=== PATIENT | male | born 1950 | race Caucasian/White ===

== ENCOUNTER → 2017-10-19 09:53 | Outpatient (CLI) | payer MEDICARE, BC, SELFPAY ==
[2017-10-19 10:04] LABS: Lyme Ab Screen Interpretation REF LAB
[2017-10-19 12:18] LABS: Absolute Lymphocyte Count 1.62 X10^3/ul (0.83-4.51); Absolute Neutrophil Count 1.8 X10^3/uL (2.0-7.7); Basophil# 0.01 X10^3/uL; Basophil% 0.3 % (0-1); Eosinophil# 0.03 X10^3/uL; Eosinophils% 0.8 % (0-5); Hematocrit 43.9 % (40-54); Hemoglobin 14.2 g/dl (13.0-16.5); Lymphocyte # 1.62 X10^3/ul (4.0); Lymphocyte % 42.5 % (19-41); Mean Corp Hgb Conc 32.3 g/gl (32-36); Mean Corpuscular Volume 89.6 fL (80-94); Mean Platelet Vol. 10.4 fl (6.2-12.0); Monocyte# 0.33 X10^3/uL; Monocyte% 8.7 % (0-10); Neutrophil # 1.82 X10^3/uL (2.7-7.7); Neutrophil % 47.7 % (47-70); Platelet Count 172 K/mm3 (150-450); RBC Distribution Width CV 13.7 % (11.6-14.6); RBC Distribution Width SD 45.1 fl (35.1-43.9); White Blood Count 3.8 K/mm3 (4.4-11.0)
[2017-10-19 12:19] LABS: POSITIVE COUNT NO; POSITIVE DIFFERENTIAL NO; POSITIVE MORPHOLOGY NO
[2017-10-19 12:30] LABS: AST(SGOT) 31 U/L (15-37); Alanine Aminotransfer ALT/SGPT 58 U/L (16-61); Albumin, Serum 3.9 g/dL (3.2-5.0); Alkaline Phosphatase 81 U/L (45-117); Anion Gap 10 (5-15); BUN 16 mg/dL (7-18); BUN/Creat Ratio 15.8 RATIO (10-20); Bilirubin, Direct 0.12 mg/dL (0.00-0.30); Chloride 110 mmol/L (98-107); Cholesterol 116 mg/dL (200); Creatinine, Serum 1.01 mg/dL (0.70-1.30); EST Glomerular Filtration Rate 78 mL/min (>60); Est Glom Filt Rate - Afr Amer 94 mL/min (>60); Globulin 3.8 g/dL (2.2-4.2); Glucose 97 mg/dL (74-106); High Density Lipoprotein 37 mg/dL; Potassium 4.2 mmol/L (3.5-5.1); Protein, Total 7.7 g/dL (6.4-8.2); Rheumatoid Factor < 10.0 IU/mL (<15); Sodium Level 141 mmol/L (136-145); Thyroid Stim Hormone (TSH) 1.12 uIU/mL (0.358-3.74); Triglycerides 76 mg/dL; Very Low Density Lipoprotein 15 mg/dL (5-40)
[2017-10-19 13:43] LABS: Erythrocyte Sedimentation Rate 11 mm/hr (0-20)
[2017-10-20 14:59] LABS: ANTINUCLEAR ANTIBODIES DIRECT Negative (Negative)
[2017-10-22 09:44] LABS: CCP IgG Antibodies 9 units (0-19); Lyme Scn Total Ab w/Rflx <0.91 ISR (0.00-0.90)
== END ==
PROVIDERS: Family Provider Nurse Practitioner; PCP Nurse Practitioner; Visit Provider Nurse Practitioner
DX: E78.5 Hyperlipidemia, unspecified (principal); I25.10 Atherosclerotic heart disease of native coronary artery without angina pectoris; M25.50 Pain in unspecified joint
CPT/HCPCS: 36415; 80053; 80061; 82248; 84443; 85025; 85652; 86038; 86200; 86431; 86618

== ENCOUNTER → 2018-03-01 08:47 | Outpatient (CLI) | payer MEDICARE, BC, SELFPAY ==
[2017-02-24 13:41] VITALS: BMI 30.1
[2018-03-01 10:42] LABS: AST(SGOT) 21 U/L (15-37); Alanine Aminotransfer ALT/SGPT 52 U/L (16-61); Albumin, Serum 3.9 g/dL (3.2-5.0); Alkaline Phosphatase 88 U/L (45-117); Bilirubin, Direct 0.13 mg/dL (0.00-0.30); Cholesterol 151 mg/dL (200); Globulin 3.3 g/dL (2.2-4.2); High Density Lipoprotein 34 mg/dL; Protein, Total 7.2 g/dL (6.4-8.2); Triglycerides 96 mg/dL; Very Low Density Lipoprotein 19 mg/dL (5-40)
== END ==
PROVIDERS: Family Provider Nurse Practitioner; PCP Nurse Practitioner; Referring Provider Internal Medicine Cardiovascular Disease; Visit Provider Internal Medicine Cardiovascular Disease
DX: E78.5 Hyperlipidemia, unspecified (principal); I25.10 Atherosclerotic heart disease of native coronary artery without angina pectoris
CPT/HCPCS: 36415; 80061; 80076

== ENCOUNTER → 2018-03-22 14:40 | Outpatient (CLI) | payer SELFPAY ==
[2018-03-04 15:44] VITALS: BMI 29.5
--- NOTE | 2018-03-22 14:44 | CT_ITS ---
STUDY: CT CHEST WITHOUT CONTRAST REASON FOR EXAM: Male, 68 years old. Calcium scoring examination. Hyperlipidemia. Radiological over read examination. RADIATION DOSAGE (If Supplied By Facility): CTDIvol = ( 12.19 ) mGy, DLP = ( 390.07 ) mGycm TECHNIQUE: Transaxial imaging was performed without the administration of intravenous contrast material. Individualized dose optimization techniques were used for this CT. COMPARISON: None. FINDINGS: Calcified granuloma in the posterior medial segment of the right lower lobe. There is no demonstrated pleural abnormality. There are calcifications of the coronary arteries. There are multiple small lymph nodes within the mediastinum, which are normal in size and morphology most compatible with reactive lymph hyperplasia. Calcified right hilar lymph nodes. Normal unenhanced pulmonary arteries. Normal aorta arch and descending thoracic aorta. There are multi-level degenerative changes of the thoracic spine. There is no demonstrated abnormality of the visualized upper abdomen. CT/Limited Chest CT w/CCTA IMPRESSION: No acute abnormality is seen. Electronically Signed: Arian Lennon MD at 13:53 EST , Service support ,
[2018-03-22 14:50] VITALS: BP 141/81; PULSE 62; RESP 16; O2SAT 98; BMI 29.1
--- NOTE | 2018-03-22 16:38 | CA.SCORE ---
Calcium Scoring Date of Study:: 03/22/18 Coronary Calcium Scoring: Coronary calcium score. High-resolution computed tomographic imaging of the chest was performed on 03/22/2018 with particular attention paid to the coronary arteries. Images from the examination were analyzed for the presence and extent of coronary artery calcification using the coronary calcification quantification software. The patient tolerated the procedure well and there were no complications. The results of the coronary calcification analysis are provided below. Coronary artery score Left main coronary artery score 657 Left anterior descending artery score 0 Left circumflex artery score 0 Right coronary artery score 22 Total Agagston score 6[address] the patient between the 75th and 90th percentile ranking for age-matched controls. It is suggestive of extensive plaque burden.
== END ==
PROVIDERS: Family Provider Nurse Practitioner; PCP Nurse Practitioner; Referring Provider Internal Medicine Cardiovascular Disease; Visit Provider Internal Medicine Cardiovascular Disease
DX: E78.5 Hyperlipidemia, unspecified (principal); I25.10 Atherosclerotic heart disease of native coronary artery without angina pectoris; R94.31 Abnormal electrocardiogram [ECG] [EKG]; I51.7 Cardiomegaly; R79.82 Elevated C-reactive protein (CRP)
CPT/HCPCS: 75571; 76380

== ENCOUNTER → 2018-03-29 07:06 | Outpatient (CLI) | payer MEDICARE, BC, SELFPAY ==
[2018-03-22 14:50] VITALS: BMI 29.1
--- NOTE | 2018-03-29 14:16 | STRESSREP_ITS ---
Stress Test Report Exercise myocardial perfusion stress test. 68-year-old man with a history of coronary artery disease. Stress protocol: Resting EKG demonstrates normal sinus rhythm with 67 bpm normal intervals are noted resting blood pressure 142/80 mmHg. The patient exercised according to regular Adrián protocol for total duration of 6 minutes the maximum heart rate attained was 148 bpm which was 98% of maximum predicted heart rate the maximum workload was 7 metabolic equivalents. At rest there were no ST or T wave changes noted suggest ischemia at peak exercise nonspecific ST-T wave changes were noted with normally the criteria for ischemia. No clinical angina was noted. Resting blood pressure 142/80 mmHg with a peak blood pressure 180/86 m mHg. Myocardial perfusion protocol. 11.6 mCi of technetium 99m sestamibi was injected at rest. The patient exercised according to regular Darián protocol for total duration of 6 minutes. The maximum heart rate attained was 148 bpm. At peak exercise 33.5 mCi of technetium 99m sestamibi was injected at rest. Stress and rest images were reconstructed and compared in the short axis vertical and horizontal long axis. Gated images were also obtained Perfusion SPECT analysis: Review of the stress images demonstrate normal uptake of tracer noted in all areas of the myocardium. The resting images similarly demonstrate normal uptake of tracer noted in all areas of the myocardium. No areas of reversibility are noted suggest ischemia. Gated SPECT analysis: The gated ejection fraction is noted to be 60%. Conclusion: Normal exercise myocardial perfusion stress test. Good functional capacity. Preserved ejection fraction.
== END ==
PROVIDERS: Family Provider Nurse Practitioner; PCP Nurse Practitioner; Referring Provider Internal Medicine Cardiovascular Disease; Visit Provider Internal Medicine Cardiovascular Disease
DX: R94.31 Abnormal electrocardiogram [ECG] [EKG] (principal); E78.5 Hyperlipidemia, unspecified; I25.10 Atherosclerotic heart disease of native coronary artery without angina pectoris; I34.0 Nonrheumatic mitral (valve) insufficiency; R79.82 Elevated C-reactive protein (CRP); R93.1 Abnormal findings on diagnostic imaging of heart and coronary circulation
CPT/HCPCS: 78452; 93017; A9500; A4216

== ENCOUNTER → 2018-08-02 | Outpatient (CLI) | payer MEDICARE, BC, SELFPAY ==
[2018-03-22 14:50] VITALS: BMI 29.1
[2018-08-02 15:27] LABS: Absolute Lymphocyte Count 1.47 X10^3/ul (0.83-4.51); Absolute Neutrophil Count 2.9 X10^3/uL (2.0-7.7); Basophil# 0.03 X10^3/uL; Basophil% 0.6 % (0-1); Eosinophil# 0.06 X10^3/uL; Eosinophils% 1.2 % (0-5); Hematocrit 42.6 % (40-54); Hemoglobin 14.2 g/dl (13.0-16.5); Lymphocyte # 1.47 X10^3/ul (4.0); Lymphocyte % 29.8 % (19-41); Mean Corp Hgb Conc 33.3 g/gl (32-36); Mean Corpuscular Volume 86.9 fL (80-94); Mean Platelet Vol. 10.6 fl (6.2-12.0); Monocyte# 0.48 X10^3/uL; Monocyte% 9.7 % (0-10); Neutrophil % 58.7 % (47-70); Platelet Count 174 K/mm3 (150-450); RBC Distribution Width CV 13.5 % (11.6-14.6); RBC Distribution Width SD 42.4 fl (35.1-43.9); White Blood Count 4.9 K/mm3 (4.4-11.0)
[2018-08-02 15:34] LABS: POSITIVE COUNT NO; POSITIVE DIFFERENTIAL NO; POSITIVE MORPHOLOGY NO
[2018-08-02 16:18] LABS: ALB/GLOB Ratio 1.1 RATIO (0.9-2.4); AST(SGOT) 29 U/L (15-37); Alanine Aminotransfer ALT/SGPT 44 U/L (16-61); Albumin, Serum 3.7 g/dL (3.2-5.0); Alkaline Phosphatase 81 U/L (45-117); Anion Gap 7 (5-15); BUN 17 mg/dL (7-18); BUN/Creat Ratio 13.2 RATIO (10-20); Calcium,Total 8.7 mg/dL (8.5-10.1); Chloride 111 mmol/L (98-107); Creatinine, Serum 1.29 mg/dL (0.70-1.30); EST Glomerular Filtration Rate 59 mL/min (>60); Est Glom Filt Rate - Afr Amer 71 mL/min (>60); Globulin 3.4 g/dL (2.2-4.2); Glucose 82 mg/dL (74-106); Protein, Total 7.1 g/dL (6.4-8.2); Sodium Level 145 mmol/L (136-145); Thyroid Stim Hormone (TSH) 1.02 uIU/mL (0.358-3.74)
== END | disposition home or self-care (01) ==
LOC: MTLAB 14:30
PROVIDERS: Family Provider Nurse Practitioner; PCP Nurse Practitioner; Referring Provider Nurse Practitioner; Visit Provider Nurse Practitioner
DX: E78.00 Pure hypercholesterolemia, unspecified (principal)
CPT/HCPCS: 36415; 80053; 84443; 85025

== ENCOUNTER → 2018-09-22 | Outpatient (CLI) | payer MEDICARE, BC, SELFPAY ==
[2018-03-22 14:50] VITALS: BMI 29.1
[2018-09-22 10:39] LABS: AST(SGOT) 25 U/L (15-37); Alanine Aminotransfer ALT/SGPT 59 U/L (16-61); Albumin, Serum 3.8 g/dL (3.2-5.0); Alkaline Phosphatase 85 U/L (45-117); Bilirubin, Direct 0.23 mg/dL (0.00-0.30); Cholesterol 109 mg/dL (200); Globulin 3.1 g/dL (2.2-4.2); High Density Lipoprotein 35 mg/dL; Protein, Total 6.9 g/dL (6.4-8.2); Triglycerides 73 mg/dL; Very Low Density Lipoprotein 15 mg/dL (5-40)
== END | disposition home or self-care (01) ==
LOC: MTLAB 07:17
PROVIDERS: Family Provider Nurse Practitioner; PCP Nurse Practitioner; Referring Provider Internal Medicine Cardiovascular Disease; Visit Provider Internal Medicine Cardiovascular Disease
DX: E78.5 Hyperlipidemia, unspecified (principal)
CPT/HCPCS: 36415; 80061; 80076

== ENCOUNTER → 2019-01-25 13:06 | Outpatient (CLI) | payer MEDICARE, BC, SELFPAY ==
[2018-03-22 14:50] VITALS: BMI 29.1
--- NOTE | 2019-01-25 13:09 | RAD_ITS ---
STUDY: X-RAY - PELVIS AND BILATERAL HIPS REASON FOR EXAM: Male, 68 years old. Chronic pain TECHNIQUE: AP view of the pelvis.? 2 views of the right hip, and 2 views of the left hip were obtained. COMPARISON: None. FINDINGS: The sacroiliac and hip joints are normal with no acute fractures or dislocations. The visualized soft tissues are within normal limits. Electronically Signed: Ernst Hinojosa MD at 7:38 EST Tel , Service support , RAD/Hips B/L min 2 views w/ Pelvis
--- NOTE | 2019-01-25 13:10 | RAD_ITS ---
STUDY: X-RAY - LUMBAR SPINE REASON FOR EXAM: Male, 68 years old. Chronic low back pain and bilateral hip pain. TECHNIQUE: 5 view(s) of the lumbar spine were obtained. COMPARISON: 01/28/2016. FINDINGS: Normal lumbar lordosis. There is no substantial scoliosis. Minimal degenerative anterolisthesis of L4 on L5 without significant changes. Normal vertebral bodies and endplates. Moderate T12-L1 disc space height narrowing with endplate sclerosis. Moderate L5-S1 disc space height narrowing with endplate sclerosis and degenerative vacuum phenomenon. Mild L3-L4 disc space height narrowing. The soft tissue structures are unremarkable. RAD/L/S Spine Min 4 Views IMPRESSION: 1. No acute fracture or acute osseous abnormality of the lumbar spine. 2. Minimal degenerative anterolisthesis of L4 on L5 without significant change since 01/28/2016. 3. Moderate L5-S1 disc space height narrowing with endplate sclerosis but unchanged. 4. Moderate T12-L1 disc space narrowing with endplate sclerosis but unchanged. 5. Mild L3-L4 disc space height narrowing is unchanged. Electronically Signed: Keenan Maxwell MD at 12:41 EST , Service support ,
== END ==
PROVIDERS: Family Provider Nurse Practitioner; PCP Nurse Practitioner; Referring Provider Nurse Practitioner; Visit Provider Nurse Practitioner
DX: M54.30 Sciatica, unspecified side (principal); M25.551 Pain in right hip; M25.552 Pain in left hip
CPT/HCPCS: 72110; 73521; 97110; 97162

== ENCOUNTER 2019-02-17 10:00 | Outpatient (RCR) | payer MEDICARE, BC, SELFPAY ==
[2018-03-22 14:50] VITALS: BMI 29.1
--- NOTE | 2019-01-25 16:59 | HP.PTEVAL_ITS ---
Patient's Visit Information SHANTHI GOMEZ is a 68 year old M referred to Physical Therapy by Ericka Silver NP-C with a diagnosis of SCIATICA. Date of Evaluation: 01/25/19 Physical Therapist: Douglas Fall, PT, Cert MDT, OCS - Visit Plan Frequency: 2x /Week Duration: 4 Weeks Plan: PT INTERVENTIONS MODALTIES FOR PAIN RELIEVE ,DLS ABD/BACK (NEUTRAL) ,LE FLEXABLITY, - Subjective Findings: This 68 y/o male presents to physical therapy with sciatica pain.Patient has had lumbar pain many years then noticed more L-S spine occassional thigh. Patient seen Ericka Ambrosio ,recommended PT and had x-rays today,recommended Patient location of symptoms L-S region ocasional anterior thighs. Aggravating factors sitting,walking extended distances ,standing > 30 mins. Alleviating factors aleve rest. Denies parathesia/tingling,occassionally. Patient pain affects sleeping. Bowel/bladder -.Coughing/sneezing-. Patient pain affects ADLS' ,housework task. Patient symptoms affects QOL. SOCIAL: . VOCATION: own business window/door - Pain Bilateral Back Pain Intensity (Out of 10): 8 Pain Intensity Range: 10 - Objective POSTURE: mild foward posture. GAIT: reciprocal pattern. PALAPTION: tender L-S. NEURO: denies parathesia/tingling,reflexes L3-4,L4-5,L5-S1 1/3. FLEXABILITY: hams mod tight. HIP ROM: IR 50 degrees. LUMBAR ROM: flexion min loss ,extension mod loss pain,side glides min/mod loss pain. SYMMTRIES: align. MMT: quads/hams 4/5 ,hip flexion 4/5 ankle 4/5 - Special Tests L/S Slump test left side: Positive L/S Slump test right side: Positive L/S Left Straight Leg Raise: Negative L/S Right Straight Leg Raise: Negative Lumbar Standing: Flexion - Mechanical Response: No effect Lumbar Standing: Flexion - Symptoms During Testing: No effect Lumbar Standing: Extension - Mechanical Response: No effect Lumbar Standing: Extension - Symptoms During Testing: Increases Lumbar Standing: Extension - Symptoms After Testing: No worse Lumbar Standing: Right Side [place] - Symptoms During Testing: Increases Lumbar Standing: Right Side [place] - Symptoms After Testing: No worse Lumbar Standing: Left Side [place] - Mechanical Response: No effect Lumbar Standing: Left Side [place] - Symptoms During Testing: Increases Lumbar Standing: Left Side [place] - Symptoms After Testing: No worse - Goals Goal 1:: Independant with HEP Goal Time Frame: 4-6 Weeks Goal 2:: Patient to be Independant with posture for ADL'S Goal Time Frame: 4-6 Weeks Goal 3:: Pateint decrease lumbar symptoms by 50% or > to improve function. Goal Time Frame: 4-6 Weeks Goal 4:: Patient improve lumbar ROM for function of recovery. Goal Time Frame: 4-6 Weeks Goal 5:: Patient to inmprove back owestry score by 5 points or> to improve QOL. Goal Time Frame: 4-6 Weeks - Rehabilitation Potential Physical Therapy Diagnosis: This patient has L-S with radiating stmptoms to buttucks and occassional anterior thighs worse with sitting,sleeping,walking ,decrease lumbar ROM impairs function thus benifit from skilled PT Rehabilitation Potential: Good - Anticipated Interventions Patient/Client Instruction: Educate patient on: Condition, Plan of Care For the Purpose of:: To decrease pain, To increase ROM, To improve muscle performance and motor function, To improve ability to perform ADL's, To increase tolerance to activity/condition/position, To improve ability of physical actions for home/community/work/leisure, To improve health of tissue, To decrease soft tissue restriction, To increase flexibility/ROM, To prevent re-injury Therapeutic Exercise to Include: Strength training, Body mechanics, Postural training, Flexibilty training, Dynamic Lumbar Stabilization For the Purpose of:: To decrease pain, To improve nutrient delivery to tissue, To improve ability to perform ADL's, To increase tolerance to activity/condition/position, To improve ability of physical actions for home/community/work/leisure, To improve health of tissue, To decrease soft tissue restriction, To increase flexibility/ROM, To improve ability to perform tasks related to life management TENS: Yes IF ES: Yes Cryotherapy (ice pack, ice massage): Yes Thermo therapy (hot pack): Yes Ultrasound (thermal/non thermal): Yes For the Purpose of:: To decrease pain, To increase ROM, To improve nutrient delivery to tissue, To increase oxygenation perfusion, To improve health of tissue, To decrease soft tissue restriction Thank you for the opportunity to evaluate your patient. For Medicare and Medicare HMO plans, please review the plan of care and approve it. It will need to be FAXED BACK to us at [phone] for Medicare purposes. For Medicare only, by signing this I certify the plan of care. Please let me know if there are questions or concerns regarding this plan of care. Physician Signature: Date:
--- NOTE | 2019-05-12 09:11 | HP.PTDCSUM_ITS ---
It has been my pleasure to treat SHANTHI GOMEZ referred by DANII Jimenez, with the diagnosis of SCIATICA for a total of 8 visit(s). Discharge Date: Please see the following information for a summary of their discharge status. Subjective: Patient about same ,symptoms intermmtant. Back pain is worse during day.Pain sleeping at night is affectsed Bilateral Back Pain Intensity (Out of 10): 4 right hip Pain Intensity (Out of 10): 0 % Improvement: 60 Objective/Function: POSTURE: mild foward posture. MMT: 4/5. LUMBAR ROM: flexion min/mod loss,extension mod loss,side glides min loss Goal 1:: Independant with HEP Goal 2:: Patient to be Independant with posture for ADL'S Goal 3:: Pateint decrease lumbar symptoms by 50% or > to improve function. Goal 4:: Patient improve lumbar ROM for function of recovery. Goal 5:: Patient to inmprove back owestry score by 5 points or> to improve QOL. Plan: RTD Wednesday. Focus now on core strength using machines/bands-add back ext machine If there are questions or concerns regarding this patient's physical therapy, please feel free to call me at [phone]. Thank you for the referral of this patient. Sincerely, Douglas Fall, PT, Cert MDT, OCS
== END 2019-02-17 19:00 | disposition home or self-care (01) ==
LOC: PT 10:00
PROVIDERS: Family Provider Nurse Practitioner; PCP Nurse Practitioner; Referring Provider Nurse Practitioner; Visit Provider Nurse Practitioner
DX: M54.30 Sciatica, unspecified side (principal)
CPT/HCPCS: 97014; 97110; 97162; G0283

== ENCOUNTER → 2019-03-31 09:43 | Outpatient (CLI) | payer MEDICARE, BC, SELFPAY ==
[2019-03-09 08:31] VITALS: BMI 29.1
--- NOTE | 2019-03-31 09:44 | ECHOD_ITS ---
Reason For Study: MVP Procedure This was a 2D Doppler, Color Flow transthoracic echocardiogram. Exam performed in department. Left Ventricle Normal LV size. Left ventricular systolic function is lower limits of normal. The estimated ejection fraction is 50 %. Stage 1 diastolic dysfunction. No regional wall motion abnormalities noted. Right Ventricle Normal RV size. Normal systolic function. Atria Normal left atrium. Normal right atrium. Mitral Valve Bileaflet diffuse mitral valve thickening. Mild mitral valve prolapse. Mild (1+) eccentric mitral valve insufficiency. Tricuspid Valve Normal tricuspid valve. Mild tricuspid valve insufficiency. Pulmonary artery systolic pressure is 24 mmHg. Aortic Valve Normal aortic valve. Trisinus/trileaflet aortic valve. Pulmonic Valve Normal pulmonic valve. Great Vessels Normal aortic root. The pulmonary artery is normal size. Normal inferior vena cava. Pericardium/Pleural No pericardial effusion. MMode/2D Measurements & Calculations LVIDd: 4.9 cm IVSd: 1.2 cm Ao root diam: 3.6 cm LVIDs: 3.6 cm LVPWd: 1.1 cm RVDd: 3.3 cm FS: 25.4 % LAV(MOD-bp): 51.0 ml EDV(MOD-sp4): 83.0 ml EDV(MOD-sp2): 92.5 ml LAV(MOD-bp) Indexed: 24.0 ml/m2 ESV(MOD-sp4): 44.5 ml EF(MOD-sp2): 48.8 % LAV(MOD-sp2): 44.2 ml EF(MOD-sp4): 46.4 % LAV(MOD-sp4): 45.1 ml SV(MOD-sp4): 38.5 ml SV(MOD-sp2): 45.1 ml LA A4 area: 17.7 cm2 LA dimension(2D): 4.2 cm RA A4 area: 11.6 cm2 Time Measurements MV dec time: 0.17 sec Doppler Measurements & Calculations MV E max sourav: 74.1 cm/sec Lat Peak E' Sourav: 10.1 cm/sec Med Peak E' Sourav: 7.0 cm/sec MV A max sourav: 96.7 cm/sec E/E' lat: 7.3 E/E' med: 10.5 MV E/A: 0.77 Ao V2 max: 124.5 cm/sec LV V1 max: 106.2 cm/sec TR max sourav: 223.1 cm/sec Ao max P.2 mmHg LV V1 max P.5 mmHg TR max P.0 mmHg Interpretation Summary Normal LV size. Left ventricular systolic function is lower limits of normal. The estimated ejection fraction is 50 %. Stage 1 diastolic dysfunction. Bileaflet diffuse mitral valve thickening. Mild mitral valve prolapse. Ordering Physician: Shaheed Malagon Referring Physician: ADRIANA PRUITT Performed By: Esther Rojas, RDCS, RVT
== END ==
LOC: CVS 09:44
PROVIDERS: PCP Nurse Practitioner; Referring Provider Internal Medicine Cardiovascular Disease; Visit Provider Internal Medicine Cardiovascular Disease
DX: I25.10 Atherosclerotic heart disease of native coronary artery without angina pectoris (principal)
CPT/HCPCS: 93306

== ENCOUNTER → 2019-12-08 07:20 | Outpatient (CLI) | payer MEDICARE, BC, SELFPAY ==
[2019-03-09 08:31] VITALS: BMI 29.1
[2019-12-08 08:08] LABS: AST(SGOT) 22 U/L (15-37); Alanine Aminotransfer ALT/SGPT 40 U/L (16-61); Albumin, Serum 3.7 g/dL (3.2-5.0); Alkaline Phosphatase 86 U/L (45-117); Bilirubin, Direct 0.21 mg/dL (0.00-0.30); Cholesterol 120 mg/dL (200); Globulin 3.6 g/dL (2.2-4.2); High Density Lipoprotein 36 mg/dL; Protein, Total 7.3 g/dL (6.4-8.2); Triglycerides 87 mg/dL; Very Low Density Lipoprotein 17 mg/dL (5-40)
== END ==
PROVIDERS: PCP Nurse Practitioner; Referring Provider Internal Medicine Cardiovascular Disease; Visit Provider Internal Medicine Cardiovascular Disease
DX: E78.00 Pure hypercholesterolemia, unspecified (principal)
CPT/HCPCS: 36415; 80061; 80076

== ENCOUNTER → 2020-01-01 07:58 | Outpatient (CLI) | payer MEDICARE, BC, SELFPAY ==
[2019-03-09 08:31] VITALS: BMI 29.1
--- NOTE | 2020-01-01 08:00 | CT_ITS ---
STUDY: CT ABDOMEN AND PELVIS WITH CONTRAST REASON FOR EXAM: Male, 69 years old. Mid abdomen pain x 6 weeks. No prior surgery, cancer, diabetes. RADIATION DOSAGE (If Supplied By Facility): CTDIvol = ( 16.74 ) mGy, DLP = ( 878.55 ) mGycm TECHNIQUE: Transaxial images were obtained from the dome of the diaphragm to the symphysis pubis with oral contrast. Oral and IV Readi-CAT and 100mL Isovue-300 was administered. Sagittal and coronal images were reconstructed. Individualized dose optimization techniques were used for this CT. COMPARISON: None. FINDINGS: Calcified granuloma in the posterior medial segment of the right The visualized portions of the heart are within normal limits. There is decreased attenuation of the liver consistent with steatosis. 8 mm cyst in the posterior aspect of the right lobe of the liver. 8 mm cyst in the lateral inferior portion of the right lobe of the liver. Normal gallbladder and extrahepatic biliary system. Normal spleen. Normal pancreas. Normal bilateral adrenal glands. 1.3 cm cyst in the mid lateral portion of the left kidney. Normal left kidney. Retroaortic left renal vein. Normal visualized stomach. Normal small intestine. Normal colon. The appendix is visualized and appears normal. There is scattered atherosclerotic calcification of the abdominal aorta, without a demonstrated aneurysm. Normal inferior vena cava. There is borderline retroperitoneal lymphadenopathy with enlarged nodes no greater than 10mm in the short axis diameter. Normal urinary bladder. There is a left-sided inguinal hernia containing adipose tissue. Small benign-appearing bilateral inguinal lymph nodes. There are degenerative changes of the visualized lumbar spine. CT/Abdomen/Pelvis WITH Contrast IMPRESSION: Fatty attrition of the liver. There are 2 subcentimeter cysts in the right lobe. Small right renal cyst. Electronically Signed: Arian Lennon, at 9:20 EST , Service support ,
== END ==
PROVIDERS: PCP Nurse Practitioner; Referring Provider Nurse Practitioner; Visit Provider Nurse Practitioner
DX: R10.9 Unspecified abdominal pain (principal)
CPT/HCPCS: 74177; Q9967

== ENCOUNTER → 2020-03-15 09:05 | Outpatient (CLI) | payer MEDICARE, BC, SELFPAY ==
[2020-03-12 09:27] VITALS: BMI 29.8
== END ==
PROVIDERS: PCP Nurse Practitioner; Referring Provider Internal Medicine Cardiovascular Disease; Visit Provider Internal Medicine Cardiovascular Disease
DX: I34.1 Nonrheumatic mitral (valve) prolapse (principal); I49.1 Atrial premature depolarization
CPT/HCPCS: 93225; 93226

== ENCOUNTER 2021-03-06 08:40 | Outpatient (CLI) | payer MEDICARE, BC, SELFPAY ==
[2021-03-06 10:29] LABS: AST(SGOT) 25 U/L (15-37); Alanine Aminotransfer ALT/SGPT 53 U/L (16-61); Albumin, Serum 3.8 g/dL (3.2-5.0); Alkaline Phosphatase 76 U/L (45-117); Bilirubin, Direct 0.13 mg/dL (0.00-0.30); Cholesterol 138 mg/dL (200); Globulin 3.2 g/dL (2.2-4.2); High Density Lipoprotein 33 mg/dL; Triglycerides 117 mg/dL; Very Low Density Lipoprotein 23 mg/dL (5-40)
== END 2021-03-06 23:59 | disposition short-term general hospital (02) ==
LOC: MTLAB 08:41
PROVIDERS: PCP Nurse Practitioner; Referring Provider Internal Medicine Cardiovascular Disease; Visit Provider Internal Medicine Cardiovascular Disease
DX: E78.00 Pure hypercholesterolemia, unspecified (principal); I25.10 Atherosclerotic heart disease of native coronary artery without angina pectoris
CPT/HCPCS: 36415; 80061; 80076

== ENCOUNTER 2021-04-21 06:35 | Outpatient (CLI) | payer MEDICARE, BC, SELFPAY ==
--- NOTE | 2021-04-21 06:37 | ECHOD_ITS ---
Reason For Study: A. fib Procedure This was a 2D Doppler, Color Flow transthoracic echocardiogram. Exam performed in department. Left Ventricle Normal LV size. Left ventricular systolic function is lower limits of normal. Stage 1 diastolic dysfunction. No regional wall motion abnormalities noted. Right Ventricle Normal RV size. Normal systolic function. Atria Normal left atrium. Normal right atrium. Mitral Valve Bileaflet diffuse mitral valve thickening. Moderate mitral valve prolapse. Mild (1+) mitral valve insufficiency. Tricuspid Valve Myxomatous appearing tricuspid valve. Mild tricuspid valve insufficiency. Aortic Valve Trisinus/trileaflet aortic valve. Pulmonic Valve Normal pulmonic valve. Great Vessels Normal aortic root. The pulmonary artery is normal size. Pericardium/Pleural No pericardial effusion. Medication 22 gauge I.V. with prn adaptor inserted into left arm. Performed a rapid injection of agitated mix of 9 cc saline and 1cc air to assess for atrial septal defect. MMode/2D Measurements & Calculations LVIDd: 4.8 cm IVSd: 1.2 cm Ao root diam: 3.4 cm LVIDs: 3.5 cm LVPWd: 0.99 cm RVDd: 3.2 cm FS: 26.5 % LAV(MOD-bp): 56.7 ml LVAd ap4: 41.1 cm2 LVAd ap2: 33.6 cm2 LAV(MOD-bp) Indexed: 26.9 ml/m2 LVLd ap4: 9.8 cm LVLd ap2: 9.1 cm LAV(MOD-sp2): 51.4 ml EDV(MOD-sp4): 139.5 ml EDV(MOD-sp2): 103.7 ml LAV(MOD-sp4): 62.2 ml EDV(sp4-el): 145.9 ml EDV(sp2-el): 105.7 ml LVAs ap4: 25.1 cm2 LVAs ap2: 21.2 cm2 LVLs ap4: 8.4 cm LVLs ap2: 7.9 cm ESV(MOD-sp4): 62.5 ml ESV(MOD-sp2): 51.3 ml ESV(sp4-el): 63.7 ml ESV(sp2-el): 48.6 ml EF(MOD-sp4): 55.2 % EF(MOD-sp2): 50.6 % EF(sp4-el): 56.4 % SV(MOD-sp4): 77.1 ml SV(MOD-sp2): 52.5 ml SV(sp4-el): 82.2 ml LA A4 area: 22.3 cm2 LA dimension(2D): 3.8 cm RA A4 area: 17.7 cm2 Doppler Measurements & Calculations MV E max sourav: 67.6 cm/sec Lat Peak E' Sourav: 9.4 cm/sec Med Peak E' Sourav: 7.0 cm/sec MV A max sourav: 84.6 cm/sec E/E' lat: 7.2 E/E' med: 9.7 MV E/A: 0.80 Ao V2 max: 148.2 cm/sec PA V2 max: 64.8 cm/sec TR max sourav: 220.0 cm/sec Ao max P.8 mmHg TR max P.4 mmHg ECHO/Echo Complete Interpretation Summary Normal LV size. Left ventricular systolic function is lower limits of normal. Stage 1 diastolic dysfunction. Moderate mitral valve prolapse. Bileaflet diffuse mitral valve thickening. Persistent Left superior vena cava following bubble contrast Myxomatous appearing tricuspid valve. Ordering Physician: Isabel Cosme Referring Physician: Ericka Silver Performed By: Kimberley Morejon RDCS
--- NOTE | 2021-04-21 17:15 | STRESSREP ---
Stress Test Report Exercise myocardial perfusion stress test. 71-year-old man with a history of recent onset atrial fibrillation. Stress protocol: Resting EKG demonstrates sinus bradycardia with premature ventricular complexes noted. Rate of 54 bpm. Resting blood pressure is 148/84 mmHg. The patient exercised according to the regular Adrián protocol for total duration of 7 minutes. The maximum heart rate attained was 130 bpm which was 87% of max impact at heart rate the maximum workload was 10 metabolic equivalents. At rest there were no ST or T wave changes noted to suggest ischemia and at peak exercise upsloping ST changes were noted with did not meet the criteria for ischemia. No clinical angina was noted. The resting blood pressure was 148/84 with a peak blood pressure 178/82 mmHg. No clinical angina was noted. This was a good blood pressure response to exercise. No chest pain was noted. Myocardial perfusion protocol. 11.7 mCi of technetium 99m sestamibi was injected at rest. The patient exercised according to regular Adrián protocol for 7 minutes and at peak exercise 34.1 mCi of technetium 99m sestamibi was injected stress images were obtained stress and rest images were reconstructed and compared in the short axis vertical long and horizontal long axis. Gated images were also obtained. Perfusion SPECT analysis: Review of the stress images demonstrate normal uptake of tracer noted in all areas of the myocardium. The resting images similarly demonstrate normal uptake of tracer noted in all areas of the myocardium. No areas of reversibility are noted to suggest ischemia and no previous infarct is noted. Gated SPECT analysis: The gated ejection fraction is 58%. Conclusion: Normal exercise myocardial perfusion stress test at a high workload. Good functional capacity. No atrial fibrillation noted. Preserved ejection fraction.
== END 2021-04-21 23:59 | disposition home or self-care (01) ==
LOC: CVS 06:36
PROVIDERS: PCP Nurse Practitioner; Referring Provider Nurse Practitioner; Visit Provider Nurse Practitioner Gerontology
DX: R94.31 Abnormal electrocardiogram [ECG] [EKG] (principal); I48.91 Unspecified atrial fibrillation
CPT/HCPCS: 78452; 93017; 93306; A9500; A4216

== ENCOUNTER → 2022-03-03 | Outpatient (CLI) | payer MEDICARE, BC, SELFPAY ==
[2022-03-03 11:01] LABS: Absolute Lymphocyte Count 1.61 X10^3/uL (0.83-4.51); Absolute Neutrophil Count 2.8 X10^3/uL (2.0-7.7); Basophil# 0.06 X10^3/uL; Basophil% 1.2 % (0-1); Eosinophil# 0.09 X10^3/uL; Eosinophils% 1.7 % (0-5); Hematocrit 46.9 % (40-54); Hemoglobin 15.2 g/dL (13.0-16.5); Lymphocyte # 1.61 X10^3/ul (0.83-4.51); Lymphocyte % 31.1 % (19-41); Mean Corp Hgb Conc 32.4 g/dL (32-36); Mean Corpuscular Hgb 29.5 pg (27.0-32.0); Mean Corpuscular Volume 91.1 fL (80-94); Mean Platelet Vol. 9.7 fl (6.2-12.0); Monocyte# 0.59 X10^3/uL; Monocyte% 11.4 % (0-10); NRBC Flagged by Analyzer 0 % (0-5); Neutrophil % 54.2 % (47-70); Platelet Count 212 K/mm3 (150-450); RBC Distribution Width CV 12.9 % (11.6-14.6); RBC Distribution Width SD 43.5 fl (35.1-43.9); Red Blood Count 5.15 M/mm3 (4.6-6.2); White Blood Count 5.2 K/mm3 (4.4-11.0)
[2022-03-03 11:30] LABS: Vitamin D,25 Hydroxy 41.4 ng/mL
[2022-03-03 11:41] LABS: ALB/GLOB Ratio 1.1 RATIO (0.9-2.4); AST(SGOT) 29 U/L (15-37); Alanine Aminotransfer ALT/SGPT 52 U/L (16-61); Albumin, Serum 3.9 g/dL (3.2-5.0); Alkaline Phosphatase 80 U/L (45-117); Anion Gap 3 (5-15); BUN 12 mg/dL (7-18); BUN/Creat Ratio 10.9 RATIO (10-20); Calcium,Total 9.3 mg/dL (8.5-10.1); Chloride 109 mmol/L (98-107); Cholesterol 137 mg/dL (200); EST Glomerular Filtration Rate 70 mL/min (>60); Est Glom Filt Rate - Afr Amer 84 mL/min (>60); Free T3 2.9 pg/mL (2.18-3.98); Globulin 3.5 g/dL (2.2-4.2); Glucose 110 mg/dL (74-106); High Density Lipoprotein 35 mg/dL; Magnesium 2.2 mg/dL (1.6-2.6); Potassium 4.4 mmol/L (3.5-5.1); Protein, Total 7.4 g/dL (6.4-8.2); Sodium Level 139 mmol/L (136-145); T4 Free Direct 0.96 ng/dL (0.76-1.46); Thyroid Stim Hormone (TSH) 1.25 uIU/mL (0.358-3.74); Triglycerides 96 mg/dL; Very Low Density Lipoprotein 19 mg/dL (5-40)
== END | disposition home or self-care (01) ==
LOC: LAB 10:35
PROVIDERS: PCP Nurse Practitioner Family; Visit Provider Nurse Practitioner Gerontology
DX: R53.83 Other fatigue (principal); E55.9 Vitamin D deficiency, unspecified; E78.00 Pure hypercholesterolemia, unspecified
CPT/HCPCS: 36415; 80053; 80061; 82306; 83735; 84439; 84443; 84481; 85025

== ENCOUNTER → 2022-07-16 | Outpatient (CLI) | payer MEDICARE, BC, SELFPAY ==
--- NOTE | 2022-07-16 08:10 | ECHOCS_ITS ---
Reason For Study: Sleep Apnea Procedure This was a 2D Doppler, Color Flow transthoracic echocardiogram. The study was technically difficult. Contrast injection was performed. Exam performed in department. Left Ventricle Normal LV size. Left ventricular systolic function is normal. The estimated ejection fraction is 55 %. Stage 1 diastolic dysfunction. No regional wall motion abnormalities noted. Right Ventricle Normal RV size. Normal systolic function. Atria The left atrium is moderately enlarged. Normal right atrium. Mitral Valve Mild diffuse mitral valve thickening. Tricuspid Valve Normal tricuspid valve. Mild tricuspid valve insufficiency. Pulmonary artery systolic pressure is 24 mmHg. Aortic Valve Trisinus/trileaflet aortic valve. Pulmonic Valve Normal pulmonic valve. Mild (1+) pulmonic valve insufficiency. Great Vessels Normal aortic root. The pulmonary artery is normal size. Normal inferior vena cava. Pericardium/Pleural No pericardial effusion. Medication 22 gauge I.V. with prn adaptor inserted into left arm. Diluted definity 3.5ml given slow IV push to enhance endocardial definition. MMode/2D Measurements & Calculations LVIDd: 4.9 cm IVSd: 0.87 cm LA dimension: 4.5 cm LVIDs: 3.4 cm LVPWd: 1.1 cm RVDd: 3.7 cm FS: 30.9 % LAV(MOD-bp): 95.4 ml LA A4 area: 28.9 cm2 RA A4 area: 17.7 cm2 LAV(MOD-bp) Indexed: 45.3 ml/m2 LAV(MOD-sp2): 81.6 ml LAV(MOD-sp4): 90.7 ml Time Measurements MV dec time: 0.25 sec Doppler Measurements & Calculations MV E max sourav: 76.5 cm/sec Lat Peak E' Sourav: 10.0 cm/sec Med Peak E' Sourav: 6.3 cm/sec MV A max sourav: 103.3 cm/sec E/E' lat: 7.7 E/E' med: 12.2 MV E/A: 0.74 MV V2 max: 107.6 cm/sec MV P1/2t max sourav: 78.0 cm/sec Ao V2 max: 129.0 cm/sec MV max P.7 mmHg MV P1/2t: 86.3 msec Ao max P.8 mmHg MV V2 mean: 49.5 cm/sec MV dec slope: 264.9 cm/sec2 Ao V2 mean: 91.4 cm/sec MV mean P.3 mmHg Ao mean P.8 mmHg MV V2 VTI: 42.9 cm MVA(P1/2t): 2.5 cm2 Ao V2 VTI: 33.3 cm AV (velocity ratio): 0.83 LV V1 max: 108.9 cm/sec MR max sourav: 583.1 cm/sec PA V2 max: 104.2 cm/sec LV V1 max P.8 mmHg MR max P.0 mmHg LV V1 mean P.4 mmHg LV V1 mean: 72.6 cm/sec LV V1 VTI: 27.7 cm TR max sourav: 230.3 cm/sec PI dec slope: 67.1 cm/sec2 TR max P.2 mmHg ECHO/Echo Complete W/ Contrast Interpretation Summary Normal LV size. Left ventricular systolic function is normal. The estimated ejection fraction is 55 %. Stage 1 diastolic dysfunction. The left atrium is moderately enlarged. Cardiac dysrhythmias noted. Ordering Physician: Odell Cook V Referring Physician: Odell Cook V Performed By: Jose Carrington RCS
== END | disposition home or self-care (01) ==
LOC: CVS 08:03
PROVIDERS: PCP Nurse Practitioner Family; Referring Provider Internal Medicine Pulmonary Disease; Visit Provider Internal Medicine Pulmonary Disease
DX: G47.31 Primary central sleep apnea (principal)
CPT/HCPCS: 93306; Q9957; A4216; C8929

== ENCOUNTER 2022-08-07 12:30 | Outpatient (RCR) | payer MEDICARE, BC, SELFPAY ==
--- NOTE | 2022-05-25 11:01 | HP.PTEVAL ---
Patient's Visit Information SHANTHI GOMEZ is a 72 year old M referred to Physical Therapy by Dr. Rancho Cheng MD with a diagnosis of S/P laminectomy and fusion L3/4/5 on 04-24-22. Date of Evaluation: 05/25/22 Physical Therapist: CHARU Neil - Visit Plan Frequency: 1x/Week Duration: 6 Weeks Plan: 2X/ week 6 weeks for LE strength, neutral spine core strength, postural exercises, stretching with HEP. Pt is in his brace until 6 weeks and to avoid bending, twisting, and heavy lifting. HEP: standing heel and toe raises, wall posture, PT, SKC - Subjective Pt had spinal fusion and laminectomy April 24 on L3/L4/L5. He is feeling pretty good. He is wearing a back brace. He still has some stiffness in his back which he was hoping that he would not have and some pain into his R hip/buttock area and that is there all the time. This all came about because he was supposed to have R knee surgery in Feb and he is still having R knee pain and they decided that he needed to deal with the back before the knee (sometime this summer he wants to have his R knee replaced). He has a little bit of tingling in his L foot. He is sleeping but the Dr are telling him he is not sleeping in a deep sleep and goes back in 2 weeks for a sleep study. Stairs: up and down 1 step at a time. Pt has 2 more weeks to make 6 weeks in the back brace. Dr said to minimize lifting (no more than 40#), no bending and no twisting. - Pain back pain Pain Intensity (Out of 10): 0 R hip pain Pain Intensity (Out of 10): 5 L hip pain Pain Intensity (Out of 10): 2 - Objective Gait: walks with decrease stance time on the R LE with some increase veering and decrease stride length. Trunk AROM: Flex 25%, Ext to neutral, SB B 25%. LE MMT: Hip flex R 11.8 and L 9.6. Knee ext R 20.5 and L 22.2. Knee flex R 10.8 and L 11.2. Hip ABD R 10.6 and L 13#. Patella DTR: 0/3 B. Walking on heels and toes: pt has decreased ROM B and weakness with toe raises and heel raises.. needed min A by therapist. Posture: flexed trunk posture with rounded shoulders... wall stretch was a good stretch for him. He is able to bridge 1/2 normal ROM without pain - Balance/Special Test Scores Oswestry Low Back Score: 17 - Goals Goal 1:: I HEP Goal Time Frame: 4-6 Weeks Goal 2:: Be able to demonstrate proper lifting techniques to keep back flat Goal Time Frame: 4-6 Weeks Goal 3:: Increase LE strength (at time of the eval: Hip flex R 11.8 and L 9.6. Knee ext R 20.5 and L 22.2. Knee flex R 10.8 and L 11.2. Hip ABD R 10.6 and L 13#). Goal Time Frame: 4-6 Weeks Goal 4:: Increase Trunk AROM : (at time of the eval: Trunk AROM: Flex 25%, Ext to neutral, SB B 25%). Goal Time Frame: 4-6 Weeks Goal 5:: Be able to heel and toe raise without weakness. Goal Time Frame: 4-6 Weeks - Rehabilitation Potential Rehabilitation Potential: Good - Anticipated Interventions Patient/Client Instruction: Educate patient on: Condition, Plan of Care For the Purpose of:: To decrease pain, To increase ROM, To improve nutrient delivery to tissue, To improve muscle performance and motor function, To improve ability to perform ADL's, To increase tolerance to activity/condition/position, To improve performance and independence with ADL's, To decrease level of supervision to perform tasks, To improve ability of physical actions for home/community/work/leisure, To improve gait and locomotor functions, To improve health of tissue, To increase flexibility/ROM Therapeutic Exercise to Include: Strength training, Endurance training, Body mechanics, Postural training, Flexibilty training, Gait and locomotor training, Neuromotor development, Active ROM, Dynamic Lumbar Stabilization, Scapular Strength/Stabilization For the Purpose of:: To decrease pain, To increase ROM, To improve nutrient delivery to tissue, To improve muscle performance and motor function, To improve ability to perform ADL's, To increase tolerance to activity/condition/position, To improve performance and independence with ADL's, To decrease level of supervision to perform tasks, To improve ability of physical actions for home/community/work/leisure, To decrease soft tissue restriction, To increase flexibility/ROM Functional Training to Include: Gait training For the Purpose of:: To improve gait and locomotor functions Thank you for the opportunity to evaluate your patient. For Medicare and Medicare HMO plans, please review the plan of care and approve it. It will need to be FAXED BACK to us at [phone] for Medicare purposes. For Medicare only, by signing this I certify the plan of care. Please let me know if there are questions or concerns regarding this plan of care. Physician Signature: Date:
--- NOTE | 2022-07-07 13:45 | HP.PTREVAL_ITS ---
Dr. Rancho Cheng MD, It has been my pleasure to treat SHANTHI GOMEZ over the last 12 visits for S/P laminectomy and fusion L3/4/5 on 04-24-22. Please see the progress note below for an update on the physical therapy plan of care! Subjective: Activity is back to normal.. He still has some back pain but no leg pain except his knees. He watches when he lifts. He feels for the most part he is strong. He is aprrehensive with his back. He feels that he can accomplish most of what he wants to do but still wishes the LBP would go away. Pt feels t hat he still has someweakness in his core. Objective/Function: Trunk AROM: Flex 75%, Ext to 25 SB B 75%, Rot B 50%. LE MMT: Hip flex R 14.9 and L 16.9. Knee ext R 20.5 and L 22.2. Knee flex R 13 and L 14.7. Hip ABD R 10.6 and L 13#. Pt is able to walk on heels and toes without any issue. LTR tight and feels a stretch pain right where he has back pain. Tight B gastroc, HS and trunk ROM. Pt tolertated light LTR, HS stretch with strap and seated wide leg trunk flexion well today Plan Plan: ADD light LTR, HS and gastroc stretches and seated wide leg trunk flexion to stretch L-spine paraspinals. 2x/week x6 weeks- LE strength, neutral spine core strength, postural exercises, stretching with HEP. Balance/Gait/Functional tests - Balance/Special Test Scores Oswestry Low Back Score: 15 Goals Goal 1:: I HEP Goal Time Frame: 4-6 Weeks Goal 2:: Be able to demonstrate proper lifting techniques to keep back flat Goal Time Frame: 4-6 Weeks Goal 3:: Increase LE strength (at time of the eval: Hip flex R 11.8 and L 9.6. Knee ext R 20.5 and L 22.2. Knee flex R 10.8 and L 11.2. Hip ABD R 10.6 and L 13#). Goal Time Frame: 4-6 Weeks Goal Progress: Goal Met Goal 4:: Increase Trunk AROM : (at time of the eval: Trunk AROM: Flex 25%, Ext to neutral, SB B 25%). Goal Time Frame: 4-6 Weeks Goal Progress: Progressing Goal 5:: Be able to heel and toe raise without weakness. Goal Time Frame: 4-6 Weeks Goal Progress: Goal Met Anticipated Interventions Patient/Client Instruction: Educate patient on: Condition, Plan of Care For the Purpose of:: To decrease pain, To increase ROM, To improve nutrient delivery to tissue, To improve muscle performance and motor function, To improve ability to perform ADL's, To increase tolerance to activity/condition/position, To improve performance and independence with ADL's, To decrease level of supervision to perform tasks, To improve ability of physical actions for home/community/work/leisure, To improve gait and locomotor functions, To improve health of tissue, To increase flexibility/ROM Therapeutic Exercise to Include: Strength training, Endurance training, Body mechanics, Postural training, Flexibilty training, Gait and locomotor training, Neuromotor development, Active ROM, Dynamic Lumbar Stabilization, Scapular Strength/Stabilization For the Purpose of:: To decrease pain, To increase ROM, To improve nutrient delivery to tissue, To improve muscle performance and motor function, To improve ability to perform ADL's, To increase tolerance to activity/condition/position, To improve performance and independence with ADL's, To decrease level of holley pervision to perform tasks, To improve ability of physical actions for home/community/work/leisure, To decrease soft tissue restriction, To increase flexibility/ROM Functional Training to Include: Gait training For the Purpose of:: To improve gait and locomotor functions Please do not hesitate to contact me at [phone] by phone or Fax: if you have questions or concerns regarding this new plan of care! Sincerely, CHARU Neil
--- NOTE | 2022-08-07 13:43 | HP.PTDCSUM ---
It has been my pleasure to treat SHANTHI GOMEZ referred by Dr. Rancho Cheng MD, with the diagnosis of S/P laminectomy and fusion L3/4/5 on 04-24-22 for a total of 17 visit(s). Discharge Date: 08/07/22 Please see the following information for a summary of their discharge status. Subjective: Pt reports that his back hurts when he goes to sit down on the back of the chair or in the car. He has no pain right now. Pt running behind. RTD in August. He would like HEP back pain Pain Intensity (Out of 10): 3 R hip pain Pain Intensity (Out of 10): 0 L hip pain Pain Intensity (Out of 10): 0 % Improvement: 60 Objective/Function: Hip flex R 16.6 and L 18. Knee ext R 20.5 and L 22.2. Knee flex R 15.7 and L 16.1. Hip ABD R 15.8 and L 18.1. Flex 75%, Ext 25%, SB B 75%. Goal 1:: I HEP Goal Progress: Goal Met Goal 2:: Be able to demonstrate proper lifting techniques to keep back flat Goal Progress: Goal Met Goal 3:: Increase LE strength (at time of the eval: Hip flex R 11.8 and L 9.6. Knee ext R 20.5 and L 22.2. Knee flex R 10.8 and L 11.2. Hip ABD R 10.6 and L 13#). Goal Progress: Goal Met Goal 4:: Increase Trunk AROM : (at time of the eval: Trunk AROM: Flex 25%, Ext to neutral, SB B 25%). Goal Progress: Goal Met Goal 5:: Be able to heel and toe raise without weakness. Goal Progress: Goal Met Plan: DC PT to HEP Discharge Comments: DC PT to HEP If there are questions or concerns regarding this patient's physical therapy, please feel free to call me at [phone]. Thank you for the referral of this patient. Sincerely, Emma Webber, MPT Balance/Gait/Functional tests - Balance/Special Test Scores Oswestry Low Back Score: 10
== END 2022-08-07 14:06 | disposition home or self-care (01) ==
LOC: PT 12:30
PROVIDERS: PCP Nurse Practitioner Family; Referring Provider Orthopaedic Surgery Orthopaedic Surgery of the Spine; Visit Provider Orthopaedic Surgery Orthopaedic Surgery of the Spine
DX: Z98.1 Arthrodesis status (principal)
CPT/HCPCS: 97110; 97161; 97530

== ENCOUNTER → 2022-10-23 | Outpatient (CLI) | payer MEDICARE, BC, SELFPAY ==
[2022-10-23 14:58] LABS: Absolute Lymphocyte Count 1.92 X10^3/uL (0.83-4.51); Absolute Neutrophil Count 2.4 X10^3/uL (2.0-7.7); Basophil# 0.05 X10^3/uL; Eosinophil# 0.14 X10^3/uL; Eosinophils% 2.8 % (0-5); Hematocrit 45.6 % (40-54); Hemoglobin 14.1 g/dL (13.0-16.5); Lymphocyte # 1.92 X10^3/ul (0.83-4.51); Mean Corp Hgb Conc 30.9 g/dL (32-36); Mean Corpuscular Hgb 28.7 pg (27.0-32.0); Mean Corpuscular Volume 92.9 fL (80-94); Mean Platelet Vol. 10.7 fl (6.2-12.0); Monocyte# 0.57 X10^3/uL; Monocyte% 11.3 % (0-10); NRBC Flagged by Analyzer 0 % (0-5); Neutrophil # 2.36 X10^3/uL (2.7-7.7); Neutrophil % 46.7 % (47-70); Platelet Count 185 K/mm3 (150-450); RBC Distribution Width SD 47.8 fl (35.1-43.9); Red Blood Count 4.91 M/mm3 (4.6-6.2); White Blood Count 5.1 K/mm3 (4.4-11.0)
[2022-10-23 15:31] LABS: ALB/GLOB Ratio 1.2 RATIO (0.9-2.4); AST(SGOT) 31 U/L (15-37); Alanine Aminotransfer ALT/SGPT 64 U/L (16-61); Albumin, Serum 3.9 g/dL (3.2-5.0); Alkaline Phosphatase 99 U/L (45-117); Anion Gap 3 (5-15); BUN 15 mg/dL (7-18); Calcium,Total 9.3 mg/dL (8.5-10.1); Chloride 109 mmol/L (98-107); Cholesterol 118 mg/dL (200); Creatinine, Serum 1.07 mg/dL (0.70-1.30); EST Glomerular Filtration Rate 72 mL/min (>60); Est Glom Filt Rate - Afr Amer 87 mL/min (>60); Free T3 2.4 pg/mL (2.18-3.98); Globulin 3.3 g/dL (2.2-4.2); Glucose 96 mg/dL (74-106); High Density Lipoprotein 31 mg/dL; Potassium 5.1 mmol/L (3.5-5.1); Protein, Total 7.2 g/dL (6.4-8.2); Sodium Level 140 mmol/L (136-145); T4 Free Direct 0.73 ng/dL (0.76-1.46); Thyroid Stim Hormone (TSH) 1.22 uIU/mL (0.358-3.74); Triglycerides 172 mg/dL; Very Low Density Lipoprotein 34 mg/dL (5-40)
== END | disposition home or self-care (01) ==
LOC: LAB 14:07
PROVIDERS: PCP Nurse Practitioner Family; Referring Provider Nurse Practitioner Gerontology; Visit Provider Nurse Practitioner Gerontology
DX: E78.00 Pure hypercholesterolemia, unspecified (principal); R53.83 Other fatigue
CPT/HCPCS: 36415; 80053; 80061; 84439; 84443; 84481; 85025

== ENCOUNTER → 2023-02-05 | Outpatient (CLI) | payer MEDICARE, BC, SELFPAY ==
--- NOTE | 2023-02-05 10:15 | RAD_ITS ---
STUDY: X-RAY - PELVIS REASON FOR EXAM: Male, 72 years old. Pain. TECHNIQUE: One view of the pelvis was obtained. COMPARISON: January 25, 2019. FINDINGS: There is a non-specific bowel gas pattern. Phleboliths. Osteopenia. Normal bilateral iliac wings, sacroiliac joints and visualized sacrum. Normal visualized bilateral superior and inferior pubic rami. Normal pubic symphysis. Normal ischial tuberosities. Laminectomies with fusion at L4-5, new since the prior study. Stable mild arthrosis of both hips. RAD/Pelvis 1 or 2 Views IMPRESSION: Osteopenia with new lower lumbosacral fusion. Stable mild arthrosis of both hips. Electronically Signed: Ronni Mckeon MD at 12:49 EST ,
[2023-02-05 12:23] LABS: Erythrocyte Sedimentation Rate 4 mm/hr (0-20)
[2023-02-05 12:29] LABS: Absolute Lymphocyte Count 1.53 X10^3/uL (0.83-4.51); Absolute Neutrophil Count 2.3 X10^3/uL (2.0-7.7); Basophil# 0.03 X10^3/uL; Basophil% 0.7 % (0-1); Eosinophil# 0.06 X10^3/uL; Eosinophils% 1.3 % (0-5); Hematocrit 43.3 % (40-54); Lymphocyte # 1.53 X10^3/ul (0.83-4.51); Lymphocyte % 34.1 % (19-41); Mean Corp Hgb Conc 32.3 g/dL (32-36); Mean Corpuscular Hgb 29.4 pg (27.0-32.0); Mean Platelet Vol. 10.2 fl (6.2-12.0); Monocyte# 0.57 X10^3/uL; Monocyte% 12.7 % (0-10); NRBC Flagged by Analyzer 0 % (0-5); Neutrophil # 2.29 X10^3/uL (2.7-7.7); Platelet Count 217 K/mm3 (150-450); RBC Distribution Width CV 13.9 % (11.6-14.6); RBC Distribution Width SD 46.8 fl (35.1-43.9); Red Blood Count 4.76 M/mm3 (4.6-6.2); White Blood Count 4.5 K/mm3 (4.4-11.0)
[2023-02-05 12:40] LABS: ALB/GLOB Ratio 1.1 RATIO (0.9-2.4); AST(SGOT) 30 U/L (15-37); Alanine Aminotransfer ALT/SGPT 41 U/L (16-61); Albumin, Serum 3.8 g/dL (3.2-5.0); Alkaline Phosphatase 84 U/L (45-117); Anion Gap 4 (5-15); BUN 14 mg/dL (7-18); BUN/Creat Ratio 12.7 RATIO (10-20); CRP < 2.90 mg/L (0.0-3.0); Calcium,Total 9.2 mg/dL (8.5-10.1); Chloride 109 mmol/L (98-107); EST Glomerular Filtration Rate 70 mL/min (>60); Est Glom Filt Rate - Afr Amer 84 mL/min (>60); Globulin 3.6 g/dL (2.2-4.2); Glucose 109 mg/dL (74-106); Potassium 4.3 mmol/L (3.5-5.1); Protein, Total 7.4 g/dL (6.4-8.2); Rheumatoid Factor < 10.0 IU/mL (<15); Sodium Level 141 mmol/L (136-145)
[2023-02-05 13:12] LABS: Hepatitis C Antibody Non-Reactive (Nonreactive)
[2023-02-05 15:46] LABS: Hepatitis B Surface Antibody Non-Reactive; Hepatitis B Surface Antigen Non-Reactive (Nonreactive)
[2023-02-08 14:09] LABS: CCP IgG Antibodies 0 units (0-19)
== END | disposition home or self-care (01) ==
PROVIDERS: PCP Nurse Practitioner Family; Referring Provider Internal Medicine Rheumatology; Visit Provider Internal Medicine Rheumatology
DX: M06.4 Inflammatory polyarthropathy (principal); M17.0 Bilateral primary osteoarthritis of knee; M16.0 Bilateral primary osteoarthritis of hip; R10.2 Pelvic and perineal pain
CPT/HCPCS: 36415; 72170; 80053; 85025; 85652; 86140; 86200; 86431; 86706; 86707; 86803; 87340; 87350

== ENCOUNTER 2023-04-01 14:00 | Outpatient (RCR) | payer MEDICARE, BC, SELFPAY ==
--- NOTE | 2023-01-25 13:50 | HP.PTEVAL ---
Patient's Visit Information Visit Information Visit Information: SHANTHI GOMEZ is a 72 year old M referred to Physical Therapy by EYAD Flowers with a diagnosis of CHRONIC PAIN DISORDER. Date of Evaluation: 01/20/23 Physical Therapist: Suzette Garcia PT, Cert MDT Visit Plan Frequency: 2-3x /Week Duration: 4-6 Weeks Plan: PLEASE ASK PATIENT TO COMPLETE BACK OSWESTRY BEFORE STARTING NEXT SESSION. AQUATIC THERAPY FOR PAIN RELIEF. FOCUS ON CORE STABILITY, POSTURAL STRENGTHENING/STRETCHING AND LE STRETCHING. 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 Present symptoms: OVER-ALL BODY PAIN . BACK PAIN. PAIN RUNNING DOWN OUTSIDE OF R THIGH TO KNEE. INTERMITTENT N/T L FOOT. R TKR PENDING MAR 2023 AND IS QUITE PAINFUL. A LOT OF L FOOT PAIN - DX'D WITH ARTHRITIS AND TREATED WITH CORTISONE SHOT 2 WKS AGO WITH SOME BENEFIT. A LOT OF PAIN IN NECK AND SHOULDERS. DIFFICULTY CLOSING HANDS IN EVENINGS BECAUSE THEY ARE STIFF AND SORE. PATIENT REPORTS HE HAD BLOODWORK DONE AND WAS TOLD INFLAMMATION IS NOT HIGH. HAS BEEN BACK TO SPINE DOCTOR (DR. PADILLA) 2 OR 3 TIMES FOR BACK PAIN AND NO FURTHER SURGERY RECOMMENDED. TRIED ANTI-INFLAMMATORY FOR 30 DAYS WITHOUT BENEFIT. REFERRED TO PAIN MGMT DOCTOR ABOUT 2 MONTHS AGO BUT THERE HAS NOT BEEN ANY FOLLOW UP TO GET AN KIM'T SET UP YET. Present since: ABOUT 2.5 YEARS. FELT REALLY GOOD AT AGE 69 THEN DX'D WITH A-FIB IN 2020 AND STARTED TO GET MORE PAIN SINCE THEN. Pain Scale: WORST 8/10, LEAST 4/10 Currently: 4/10 Is it getting better, worse or staying the same: GETTING WORSE Commenced as a result of: NO APPARENT REASON OTHER THAN ARTHRITS. Worse: PROLONGED SITTING, PROLONGED STANDING Better: TYLONOL Disturbed sleep: NOT USUALLY Previous history/Previous treatment: S/P LAMINECTOMY AND FUSION L345 04/24/22. SEE SYMPTOMS ABOVE. MONTY SHLD PAIN. Coughing/sneezing/straining: NEGATIVE FOR INCREASED PAIN. Gait: TIME AND DISTANCE LIMITED BY L FOOT, R KNEE AND LOW BACK PAIN. NO AD'S. NO FALLS. Bowel or Bladder Dysfunction: NO Accidents: NO Unexplained weight loss: NO IMAGING: MULTIPLE JOINT IMAGES SHOWING ARTHRITIS. PMH/Recent major surgery: SLEEP APNEA Objective Objective: Sitting/Standing Posture: INCREASED KYPHOSIS. FORWARD HEAD. ROUNDED SHOULDERS. R SHLD LOWER THAN L. R ILIAC CREST HIGHER THAN L. DECREASED LORDOSIS. ABLE TO PARTIALLY CORRECT POSTURE BUT DOES NOT MAINTAIN. Other Observations: INDEP GAIT WITHOUT AD OR LOB. DECREASED MONTY STRIDE LENGTH AND TRUNK ROTATION. Sensory deficit: DECREASED LIGHT TOUCH R LATERAL THIGH COMPARED TO L. ROM deficit: MONTY HIP, HS AND CALF TIGHTNESS Motor deficit: MONTY UE AND LE STRENGTH GROSSLY 5/5 WITH MMT'ING EXCEPT HIPS AND SHLDS 4/5. Dural Signs: NEGATIVE MONTY LE'S. CERVICAL MVMT LOSS; FLEX - NIL PRO - NIL RET - RAZIA EXT - MOD R ROT - MOD L ROT - MOD TO RAZIA R SB - MOD L SB - MOD INCREASED C/O NECK PAIN WITH CERVICAL ROM TESTING ALL PLANES [place]. L NECK ROTATION. Lumbar mvmt loss: flex - MOD TO RAZIA ext - RAZIA R SG - RAZIA L SG - RAZIA PATIENT C/O INCREASED LBP WITH LUMBAR ROM TESTING ALL PLANES. Core strength: FAIR Palpation: NO ACUTE TENDERNESS. Goals Goal 1:: DECREASED C/O GENERALIZED BODY PAIN BY AT LEAST 25% TO EASE ADL'S. Goal Time Frame: 4-6 Weeks Goal 2:: PATIENT WILL REPORT BEING ABOUT TO SIT FOR AT LEAST 30 MIN AND STAND FOR AT LEAST 10 MINUTES WITH 0-4/10 PAIN. Goal Time Frame: 4-6 Weeks Goal 3:: PATIENT WILL BE INDEP WITH LAND AND/OR WATER EX PROGRAMS FOR CONTINUED IMPROVEMENT ONCE FORMAL PHYSICAL THERAPY CONCLUDES. Goal Time Frame: 6-8 Weeks Rehabilitation Potential Rehabilitation Potential: Fair Anticipated Interventions Patient/Client Instruction: Educate patient on: Condition, Plan of Care and Risk Factors For the Purpose of:: To improve self management Therapeutic Exercise to Include: Strength training, Endurance training, Body mechanics, Postural training, Flexibilty training, Gait and locomotor training, Neuromotor development, In an aquatic setting , Dynamic Lumbar Stabilization and Scapular Strength/Stabilization For the Purpose of:: To decrease pain, To increase ROM, To improve muscle performance and motor function, To increase tolerance to activity/condition/position, To improve ability of physical actions for home/community/work/leisure and To improve gait and locomotor functions Text: Thank you for the opportunity to evaluate your patient. For Medicare and Medicare HMO plans, please review the plan of care and approve it. It will need to be FAXED BACK to us at [phone] for Medicare purposes. For Medicare only, by signing this I certify the plan of care. Please let me know if there are questions or concerns regarding this plan of care. Physician Signature: Date:
--- NOTE | 2023-02-26 12:32 | HP.PTREVAL ---
Re-Evaluation Intro: Dolores Banda, DEBBIE-C, It has been my pleasure to treat SHANTHI GOMEZ over the last 8 visits for CHRONIC PAIN DISORDER. Please see the progress note below for an update on the physical therapy plan of care! Subjective Subjective: PATIENT REPORTS WHEN HE LEAVES HERE HE HAS SOME PAIN RELIEF. PATIENT REPORTS HE ENJOYS THE WATER EX'S. PATIENT REPORTS HE DEFINATELY SEES THE ADVANTAGE TO USING THE POOL FOR EXERCISE. PATIENT REPORTS HE WOULD LIKE TO KEEP HIS GET HIS STRENGTH UP MUCH POSSIBLE TO HELP HIS PAIN AND PREPARE FOR HIS KNEE SURGERY AND HIS SURGEON CONCURS. STILL HAVING ISSUES WITH BACK AND GOING TO SEE BACK SURGEON ON WEDNESDAY - BURING DOWN R LE. R TKR STILL PENDING MAR 2022. PATIENT REPORTS THE OTHER PAINS JUST MOVE AROUND HIS BODY. [facility] AND HAD SOME X-RAYS DONE AND WILL FOLLOW UP AGAIN IN ABOUT A WK FOR RESULTS. CONSIDERING TRYING SOME NEW MEDICATIONS. PATIENT REPORTS 30 TO 40% IMPROVEMENT SINCE STARTING WATER PT. Objective Objective/Function: PATIENT WAS SEEN TODAY FOR RE-ASSESSMENT OF PROGRESS TOWARD THE SET PT GOALS AND THE NEED FOR FURTHER PHYSICAL THERAPY VS READINESS FOR DISCHARGE. UPON EXAM TODAY PATIENT IS SHOWING SLOW PROGRESS TOWARD ALL PT GOALS AND IS A GOOD CANDIDATE TO CONTINUE PT BASED ON PROGRESS MADE AND ROOM FOR FURTHER IMPROVEMENT. PATIENT IS AGREEABLE. UPON TESTING, ALL MEASUREMENTS ARE THE SAME OR SLIGHTLY BETTER COMPARED TO INITIAL EVAL. PATIENT TOLERATED ASSESSMENT WELL TODAY. Plan Plan Plan: CONT PT 2X'S A WK X 5-6 WKS: AQUATIC THERAPY FOR PAIN RELIEF. FOCUS ON CORE STABILITY, POSTURAL STRENGTHENING/STRETCHING AND LE STRETCHING. Balance/Gait/Functional tests Balance/Special Test Scores Oswestry Low Back Score: 17 Goals Goals Goal 1:: DECREASED C/O GENERALIZED BODY PAIN BY AT LEAST 25% TO EASE ADL'S. Goal Time Frame: 4-6 Weeks Goal Progress: Progressing Goal 2:: PATIENT WILL REPORT BEING ABOUT TO SIT FOR AT LEAST 30 MIN AND STAND FOR AT LEAST 10 MINUTES WITH 0-4/10 PAIN. Goal Time Frame: 4-6 Weeks Goal Progress: Progressing Goal 3:: PATIENT WILL BE INDEP WITH LAND AND/OR WATER EX PROGRAMS FOR CONTINUED IMPROVEMENT ONCE FORMAL PHYSICAL THERAPY CONCLUDES. Goal Time Frame: 6-8 Weeks Goal Progress: Progressing Anticipated Interventions Anticipated Interventions Patient/Client Instruction: Educate patient on: Condition, Plan of Care and Risk Factors For the Purpose of:: To improve self management Therapeutic Exercise to Include: Strength training, Endurance training, Body mechanics, Postural training, Flexibilty training, Gait and locomotor training, Neuromotor development, In an aquatic setting , Dynamic Lumbar Stabilization and Scapular Strength/Stabilization For the Purpose of:: To decrease pain, To increase ROM, To improve muscle performance and motor function, To increase tolerance to activity/condition/position, To improve ability of physical actions for home/community/work/leisure and To improve gait and locomotor functions Re-Evaluation Ending Re-evaluation ending: Please do not hesitate to contact me at [phone] by phone or if you have questions or concerns regarding this new plan of care! Sincerely, Suzette Garcia, PT, Cert MDT
--- NOTE | 2023-04-05 15:01 | HP.PTDCSUM ---
Discharge Summary D/C summary: It has been my pleasure to treat SHANTHI GOMEZ referred by Dolores Banda NP-C, with the diagnosis of CHRONIC PAIN DISORDER for a total of 18 visit(s). Discharge Date: 04/05/23 Please see the following information for a summary of their discharge status. Subjective Subjective: PATIENT REPORTS HE HAS LOOSENED UP SINCE STARTING THERAPY BUT HE STILL CAN'T PUT HIS SOCKS ON SOMETIMES SO HE ISN'T WHERE HE WANTS TO BE YET. HE STATES IT HAS HELPED HIM GET MORE MOBILE AND HE FEELS THE POOL HAS BEEN A GOOD EX PROGRAM FOR HIM ESPECIALLY WITH HIS R KNEE THE WAY IT IS. R TKR PENDING WEDNESDAY. STATES POSITIVE FINDING ON LUMBAR MRI AND HAS BEEN REFERRED TO DR. BEACH FOR PAIN MGMT. Pain Back: Pain Intensity (Out of 10): 5 R knee: Pain Intensity (Out of 10): 6 B shoulders: Pain Intensity (Out of 10): 0 R HIP: Pain Intensity (Out of 10): 0 Overall Improvement % Improvement: 50 Objective Objective/Function: PATIENT WAS SEEN TODAY FOR RE-ASSESSMENT OF PROGRESS TOWARD THE SET PT GOALS AND THE NEED FOR FURTHER PHYSICAL THERAPY VS READINESS FOR DISCHARGE. PATIENT IS HAVING R TKA WEDNESDAY. UPON ASSESSMENT TODAY, THERE ARE NO SIGNIFACANT OBJECTIVE CHANGES BUT SUBJECTIVELY PATIENT IS REPORTING IMPROVEMENT AND HE IS NOW INDEP WITH A WATER EX PROGRAM AND A HEP PROGRAM. EACH GOAL WAS DISCUSSED WITH PATIENT AND PATIENT FEELS EACH GOAL HAS BEEN MET. Goals Goal 1:: DECREASED C/O GENERALIZED BODY PAIN BY AT LEAST 25% TO EASE ADL'S. Goal Progress: Goal Met Goal 2:: PATIENT WILL REPORT BEING ABOUT TO SIT FOR AT LEAST 30 MIN AND STAND FOR AT LEAST 10 MINUTES WITH 0-4/10 PAIN. Goal Progress: Goal Met Goal 3:: PATIENT WILL BE INDEP WITH LAND AND/OR WATER EX PROGRAMS FOR CONTINUED IMPROVEMENT ONCE FORMAL PHYSICAL THERAPY CONCLUDES. Goal Progress: Goal Met Plan Plan: D/C D/C Information d/c sentence: If there are questions or concerns regarding this patient's physical therapy, please feel free to call me at [phone]. Thank you for the referral of this patient. Sincerely, Suzette Garcia, PT, Cert MDT Balance/Gait/Functional tests Balance/Special Test Scores Oswestry Low Back Score: 16 Improvement % Improvement: 50
== END 2023-04-01 19:00 | disposition home or self-care (01) ==
LOC: PT 14:00
PROVIDERS: PCP Nurse Practitioner Family; Visit Provider Nurse Practitioner Family
DX: G89.4 Chronic pain syndrome (principal)
CPT/HCPCS: 97113; 97162; 97164

== ENCOUNTER → 2023-05-07 | Outpatient (CLI) | payer MEDICARE, BC, SELFPAY ==
[2023-05-07 17:36] LABS: Absolute Lymphocyte Count 2.05 X10^3/uL (0.83-4.51); Absolute Neutrophil Count 3.6 X10^3/uL (2.0-7.7); Basophil# 0.08 X10^3/uL; Basophil% 1.2 % (0-1); Eosinophil# 0.31 X10^3/uL; Eosinophils% 4.5 % (0-5); Hematocrit 39.7 % (40-54); Hemoglobin 12.4 g/dL (13.0-16.5); Lymphocyte # 2.05 X10^3/ul (0.83-4.51); Lymphocyte % 29.8 % (19-41); Mean Corp Hgb Conc 31.2 g/dL (32-36); Mean Corpuscular Hgb 28.1 pg (27.0-32.0); Mean Platelet Vol. 10.1 fl (6.2-12.0); Monocyte# 0.84 X10^3/uL; Monocyte% 12.2 % (0-10); NRBC Flagged by Analyzer 0 % (0-5); Neutrophil # 3.59 X10^3/uL (2.7-7.7); Neutrophil % 52.2 % (47-70); Platelet Count 311 K/mm3 (150-450); RBC Distribution Width CV 13.7 % (11.6-14.6); RBC Distribution Width SD 44.6 fl (35.1-43.9); Red Blood Count 4.41 M/mm3 (4.6-6.2); White Blood Count 6.9 K/mm3 (4.4-11.0)
[2023-05-07 18:01] LABS: AST(SGOT) 25 U/L (15-37); Alanine Aminotransfer ALT/SGPT 42 U/L (16-61); Albumin, Serum 3.9 g/dL (3.2-5.0); Alkaline Phosphatase 111 U/L (45-117); Anion Gap 4 (5-15); BUN 15 mg/dL (7-18); BUN/Creat Ratio 12.4 RATIO (10-20); Calcium,Total 9.8 mg/dL (8.5-10.1); Chloride 107 mmol/L (98-107); Creatinine, Serum 1.21 mg/dL (0.70-1.30); EST Glomerular Filtration Rate 62 mL/min (>60); Est Glom Filt Rate - Afr Amer 75 mL/min (>60); Globulin 3.9 g/dL (2.2-4.2); Glucose 86 mg/dL (74-106); Potassium 4.3 mmol/L (3.5-5.1); Protein, Total 7.8 g/dL (6.4-8.2); Sodium Level 139 mmol/L (136-145)
== END | disposition home or self-care (01) ==
LOC: MTLAB 16:10
PROVIDERS: PCP Nurse Practitioner Family; Referring Provider Internal Medicine Rheumatology; Visit Provider Internal Medicine Rheumatology
DX: M06.4 Inflammatory polyarthropathy (principal); M17.0 Bilateral primary osteoarthritis of knee; M16.0 Bilateral primary osteoarthritis of hip; Z79.899 Other long term (current) drug therapy
CPT/HCPCS: 36415; 80053; 85025

== ENCOUNTER → 2023-06-28 | Outpatient (CLI) | payer MEDICARE, BC, SELFPAY ==
[2023-06-28 10:29] LABS: Absolute Lymphocyte Count 1.43 X10^3/uL (0.83-4.51); Absolute Neutrophil Count 3.3 X10^3/uL (2.0-7.7); Basophil# 0.05 X10^3/uL; Basophil% 0.9 % (0-1); Eosinophil# 0.13 X10^3/uL; Eosinophils% 2.3 % (0-5); Hematocrit 38.3 % (40-54); Hemoglobin 12.1 g/dL (13.0-16.5); Lymphocyte # 1.43 X10^3/ul (0.83-4.51); Lymphocyte % 25.7 % (19-41); Mean Corp Hgb Conc 31.6 g/dL (32-36); Mean Corpuscular Hgb 28.9 pg (27.0-32.0); Mean Corpuscular Volume 91.4 fL (80-94); Mean Platelet Vol. 9.9 fl (6.2-12.0); Monocyte# 0.61 X10^3/uL; NRBC Flagged by Analyzer 0 % (0-5); Neutrophil # 3.32 X10^3/uL (2.7-7.7); Neutrophil % 59.6 % (47-70); Platelet Count 239 K/mm3 (150-450); RBC Distribution Width CV 15.8 % (11.6-14.6); RBC Distribution Width SD 52.6 fl (35.1-43.9); Red Blood Count 4.19 M/mm3 (4.6-6.2); White Blood Count 5.6 K/mm3 (4.4-11.0)
[2023-06-28 11:36] LABS: ALB/GLOB Ratio 1.2 RATIO (0.9-2.4); AST(SGOT) 29 U/L (15-37); Alanine Aminotransfer ALT/SGPT 64 U/L (16-61); Albumin, Serum 3.6 g/dL (3.2-5.0); Alkaline Phosphatase 85 U/L (45-117); Anion Gap 4 (5-15); BUN 18 mg/dL (7-18); BUN/Creat Ratio 17.8 RATIO (10-20); Calcium,Total 9.5 mg/dL (8.5-10.1); Chloride 109 mmol/L (98-107); Creatinine, Serum 1.01 mg/dL (0.70-1.30); EST Glomerular Filtration Rate 77 mL/min (>60); Est Glom Filt Rate - Afr Amer 93 mL/min (>60); Globulin 3.1 g/dL (2.2-4.2); Glucose 106 mg/dL (74-106); Potassium 4.1 mmol/L (3.5-5.1); Protein, Total 6.7 g/dL (6.4-8.2); Sodium Level 140 mmol/L (136-145)
== END | disposition home or self-care (01) ==
LOC: MTLAB 07:06
PROVIDERS: PCP Nurse Practitioner Family; Referring Provider Internal Medicine Rheumatology; Visit Provider Internal Medicine Rheumatology
DX: M06.4 Inflammatory polyarthropathy (principal); M17.0 Bilateral primary osteoarthritis of knee; M16.0 Bilateral primary osteoarthritis of hip; Z79.899 Other long term (current) drug therapy
CPT/HCPCS: 36415; 80053; 85025

== ENCOUNTER 2023-06-29 10:30 | Outpatient (RCR) | payer MEDICARE, BC, SELFPAY ==
--- NOTE | 2023-04-22 14:02 | HP.PTEVAL_ITS ---
Patient's Visit Information Visit Information Visit Information: SHANTHI GOMEZ is a 73 year old M referred to Physical Therapy by Dr. Wilfrid Verduzco MD with a diagnosis of R TKA. Date of Evaluation: 04/20/23 Physical Therapist: Christopher Rome DPT Visit Plan Frequency: 2x /Week Duration: 3 Months Plan: - ROM: PROM with OP, AROM with strap and towel assisted movement, joint mobs for pain and increased motion - hamstring and quad stretching, can do passively to help increase knee ROM - quad strength - once pt has achieved full ROM, begin more aggressive strengthening with step ups, weighted STS, dynamic balance (DL and SL) - hip and glute strengthening once quad strength/endurance has improved Pt doing well, currently using SPC but has the goal to use no AD. Fairly painful with knee flex, but overall not very irritable upon IE. 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 Pt denies any calf pain swelling, tenderness or redness. Pt able to take bandage off a week ago. Pt using walker at home, concerned about dog getting in his way. Lives with , able to help him but he is currently able to dress, shower, and walk around the house without her assistance. Pt sleeping in a recliner for comfort, but would like to get back to sleeping in bed. R foot feels tingly and goes to sleep, denies any sensation of drop foot. Surgeon gave pt quad set, SAQ, SLR, LAQ, and seated knee flex for home ex, does them at least once a day. Ice machine and leg elevation helps with pain, walking and bending tend to increase pain. Pain Right Knee: Pain Intensity (Out of 10): 3 Pain Intensity Range: 2 and 6 Objective Objective: GIRTH: 18.5 R mid-patellar, 16 L mid-patella ROM: R knee ext lacking 20 deg, flex with some OP 75 deg and pain GAIT: antalgic using SPC, increased lateral trunk lean with some increased lumbar flexion, pt educated to use cane on opp side with step-through pattern MMT: R knee ext 3+/5 with only slight increase in pain, salud ankle DF 4+/5, salud ankle PF 4+/5 some tingling in bottom of R foot STS: keeps R LE straightened and using UE to help lift and lower self into chair SLR: 20 deg knee lag [id number] using SPC OBSERVATIONS: scar had some redness and minimal clear drainage, pt educated to keep any eye on swelling and redness but does not present with any apparent indications of infection at this time Balance/Special Test Scores Lower Extremity Functional Score: 24 Goals Goal 1:: Pt will demonstrate symmetrical circumference of salud knees Goal Time Frame: 8-12 Weeks Goal 2:: Pt will be able to amb. >600ft with no AD Goal Time Frame: 6-8 Weeks Goal 3:: Pt will perform TUG in <12s and no AD Goal Time Frame: 8-12 Weeks Goal 4:: Pt will be able to amb. with normalized gait pattern and no AD Goal Time Frame: 8-12 Weeks Goal 5:: Pt will be able to squat with good mechanics, equal WB through LEs, and <2/10 Goal Time Frame: 6-8 Weeks Goal 6:: Pt will be able to stand for 30+ min with <2/10 pain and no reliance on AD Goal Time Frame: 4-6 Weeks Rehabilitation Potential Physical Therapy Diagnosis: Pt presents to R knee pain, and deficits with knee ROM, strength, and gait s/p R TKA. Pt would benefit from PT services to address knee pain, decreased knee ROM, decreased RLE strength, and gait mechanics with LRD. Rehabilitation Potential: Excellent Anticipated Interventions Patient/Client Instruction: Educate patient on: Condition and Plan of Care For the Purpose of:: To decrease pain, To decrease swelling/inflammation, To increase ROM, To improve nutrient delivery to tissue, To increase oxygenation perfusion, To improve ability to perform ADL's, To increase tolerance to activity/condition/position, To improve performance and independence with ADL's, To decrease level of supervision to perform tasks, To improve health of tissue, To decrease soft tissue restriction, To increase flexibility/ROM, To improve balance, To improve safety with gait, To assume or resume ADL's, To improve health and function, To improve ability to perform tasks related to life management and To improve tolerance to ADL's Therapeutic Exercise to Include: Strength training, Balance training, Flexibilty training, Gait and locomotor training, Passive ROM and Active ROM For the Purpose of:: To decrease pain, To decrease swelling/inflammation, To increase ROM, To improve muscle performance and motor function, To improve ability to perform ADL's, To increase tolerance to activity/condition/position, To improve performance and independence with ADL's, To decrease level of supervision to perform tasks, To improve ability of physical actions for home/community/work/leisure, To improve gait and locomotor functions, To improve health of tissue, To decrease soft tissue restriction, To increase flexibility/ROM, To improve balance, To improve safety with gait, To assume or resume ADL's, To improve self management, To improve ability to perform tasks related to life management and To improve tolerance to ADL's Manual Therapy Techniques to Include: Scar massage, Mobilization, Passive ROM and Soft tissue mobilization For the Purpose of:: To decrease pain, To decrease swelling/inflammation, To increase ROM, To increase tolerance to activity/condition/position, To improve health of tissue, To decrease soft tissue restriction, To increase f lexibility/ROM and To improve tolerance to ADL's Cryotherapy (ice pack, ice massage): Yes Vasopneumatic device: Yes For the Purpose of:: To decrease pain and To decrease swelling/inflammation Text: Thank you for the opportunity to evaluate your patient. For Medicare and Medicare HMO plans, please review the plan of care and approve it. It will need to be FAXED BACK to us at [phone] for Medicare purposes. For Medicare only, by signing this I certify the plan of care. Please let me know if there are questions or concerns regarding this plan of care. Physician Signature: Date:
--- NOTE | 2023-06-29 11:23 | HP.PTDCSUM ---
Discharge Summary D/C summary: It has been my pleasure to treat SHANTHI GOMEZ referred by Dr. Wilfrid Verduzco MD, with the diagnosis of R TKA for a total of 27 visit(s). Discharge Date: 06/29/23 Please see the following information for a summary of their discharge status. Subjective Subjective: Pt. reports overall being 80% better. Pt. reports no pain currently. He still has some soreness with certain activities, but is overall progressed well. Pt. pleased. Pain Right Knee: Pain Intensity (Out of 10): 0 Overall Improvement % Improvement: 80 Objective Objective/Function: ROM: AROM: 0-0-111deg. PROM 0-0-119deg. Pt. has tightness in B HS as well. MMT: RLE: Knee ext 37#, flexion 29# LLE: knee ext: 42#, flexion 35# GAIT: pt. has pretty normal gait pattern. No pain, good knee flexion/extension during pattern. TUG 7.9sec. no AD STAIRS: normal reciprocal pattern. Slight pain with descending, but not much. Pt. demonstrated good squat mechanics to chair without increase in symptoms. Pt. was able to ambulate 1317feet with 6 MWT. Goals Goal 1:: Pt will demonstrate symmetrical circumference of salud knees Goal Progress: Goal Met Goal 2:: Pt will be able to amb. >600ft with no AD Goal Progress: Goal Met Goal 3:: Pt will perform TUG in <12s and no AD Goal Progress: Goal Met Goal 4:: Pt will be able to amb. with normalized gait pattern and no AD Goal Progress: Goal Met Goal 5:: Pt will be able to squat with good mechanics, equal WB through LEs, and <2/10 Goal Progress: Goal Met Goal 6:: Pt will be able to stand for 30+ min with <2/10 pain and no reliance on AD Goal Progress: Goal Met Plan Plan: Pt. will be DC from PT at this point in time. D/C Information Discharge Comments: Pt. is overall doing well. I would have him continue to work on end range ROM and get back to all recreational walking as tolerated. He also plans to join local gym to continue with exercises. d/c sentence: If there are questions or concerns regarding this patient's physical therapy, please feel free to call me at [phone]. Thank you for the referral of this patient. Sincerely, Christopher Rome, DPT Balance/Gait/Functional tests Balance/Special Test Scores Lower Extremity Functional Score: 64 TUG Test Time Seconds: 7.9 Tug Test: <10 sec.=free mobile 6 Minute Walk Test: 1317 feet noAD Improvement % Improvement: 80
== END 2023-06-29 14:47 | disposition home or self-care (01) ==
LOC: PT 10:30
PROVIDERS: PCP Nurse Practitioner Family; Referring Provider Orthopaedic Surgery; Visit Provider Orthopaedic Surgery
DX: Z96.651 Presence of right artificial knee joint (principal)
CPT/HCPCS: 97016; 97110; 97140; 97161; 97530

== ENCOUNTER → 2023-08-09 | Outpatient (CLI) | payer MEDICARE, BC, SELFPAY ==
[2023-08-09 12:51] LABS: Absolute Lymphocyte Count 1.67 X10^3/uL (0.83-4.51); Absolute Neutrophil Count 3.1 X10^3/uL (2.0-7.7); Basophil# 0.06 X10^3/uL; Basophil% 1.1 % (0-1); Eosinophil# 0.12 X10^3/uL; Eosinophils% 2.2 % (0-5); Hematocrit 40.4 % (40-54); Lymphocyte # 1.67 X10^3/ul (0.83-4.51); Lymphocyte % 30.3 % (19-41); Mean Corp Hgb Conc 32.2 g/dL (32-36); Mean Corpuscular Hgb 29.7 pg (27.0-32.0); Mean Corpuscular Volume 92.4 fL (80-94); Mean Platelet Vol. 10.8 fl (6.2-12.0); Monocyte% 10.9 % (0-10); NRBC Flagged by Analyzer 0 % (0-5); Neutrophil # 3.06 X10^3/uL (2.7-7.7); Neutrophil % 55.3 % (47-70); Platelet Count 239 K/mm3 (150-450); RBC Distribution Width CV 15.4 % (11.6-14.6); RBC Distribution Width SD 52.3 fl (35.1-43.9); Red Blood Count 4.37 M/mm3 (4.6-6.2); White Blood Count 5.5 K/mm3 (4.4-11.0)
[2023-08-09 12:56] LABS: ALB/GLOB Ratio 1.2 RATIO (0.9-2.4); AST(SGOT) 31 U/L (15-37); Alanine Aminotransfer ALT/SGPT 54 U/L (16-61); Albumin, Serum 3.8 g/dL (3.2-5.0); Alkaline Phosphatase 101 U/L (45-117); Anion Gap 6 (5-15); BUN 12 mg/dL (7-18); Calcium,Total 9.6 mg/dL (8.5-10.1); Chloride 109 mmol/L (98-107); Creatinine, Serum 1.09 mg/dL (0.70-1.30); EST Glomerular Filtration Rate 70 mL/min (>60); Est Glom Filt Rate - Afr Amer 85 mL/min (>60); Globulin 3.2 g/dL (2.2-4.2); Glucose 111 mg/dL (74-106); Potassium 4.3 mmol/L (3.5-5.1); Sodium Level 141 mmol/L (136-145)
== END | disposition home or self-care (01) ==
PROVIDERS: PCP Nurse Practitioner Family; Referring Provider Internal Medicine Rheumatology; Visit Provider Internal Medicine Rheumatology
DX: M06.4 Inflammatory polyarthropathy (principal); Z79.899 Other long term (current) drug therapy
CPT/HCPCS: 36415; 80053; 85025

== ENCOUNTER → 2023-11-01 | Outpatient (CLI) | payer MEDICARE, BC, SELFPAY ==
[2023-11-01 17:52] LABS: Absolute Lymphocyte Count 1.58 X10^3/uL (0.83-4.51); Absolute Neutrophil Count 3.2 X10^3/uL (2.0-7.7); Basophil# 0.05 X10^3/uL; Basophil% 0.9 % (0-1); Eosinophil# 0.05 X10^3/uL; Eosinophils% 0.9 % (0-5); Hematocrit 41.8 % (40-54); Hemoglobin 13.8 g/dL (13.0-16.5); Lymphocyte # 1.58 X10^3/ul (0.83-4.51); Lymphocyte % 29.8 % (19-41); Mean Corpuscular Hgb 30.1 pg (27.0-32.0); Mean Corpuscular Volume 91.3 fL (80-94); Mean Platelet Vol. 10.6 fl (6.2-12.0); Monocyte# 0.42 X10^3/uL; Monocyte% 7.9 % (0-10); NRBC Flagged by Analyzer 0 % (0-5); Neutrophil # 3.19 X10^3/uL (2.7-7.7); Neutrophil % 60.3 % (47-70); Platelet Count 235 K/mm3 (150-450); RBC Distribution Width CV 13.3 % (11.6-14.6); RBC Distribution Width SD 44.8 fl (35.1-43.9); Red Blood Count 4.58 M/mm3 (4.6-6.2); White Blood Count 5.3 K/mm3 (4.4-11.0)
[2023-11-01 20:41] LABS: ALB/GLOB Ratio 1.1 RATIO (0.9-2.4); AST(SGOT) 28 U/L (15-37); Alanine Aminotransfer ALT/SGPT 46 U/L (16-61); Alkaline Phosphatase 104 U/L (45-117); Anion Gap 9 (5-15); BUN 17 mg/dL (7-18); BUN/Creat Ratio 15.3 RATIO (10-20); Calcium,Total 10.8 mg/dL (8.5-10.1); Chloride 108 mmol/L (98-107); Creatinine, Serum 1.11 mg/dL (0.70-1.30); EST Glomerular Filtration Rate 69 mL/min (>60); Est Glom Filt Rate - Afr Amer 83 mL/min (>60); Globulin 3.6 g/dL (2.2-4.2); Glucose 111 mg/dL (74-106); Potassium 4.5 mmol/L (3.5-5.1); Protein, Total 7.6 g/dL (6.4-8.2); Sodium Level 140 mmol/L (136-145)
== END | disposition home or self-care (01) ==
PROVIDERS: PCP Nurse Practitioner Family; Referring Provider Internal Medicine Rheumatology; Visit Provider Internal Medicine Rheumatology
DX: M06.4 Inflammatory polyarthropathy (principal); Z79.899 Other long term (current) drug therapy
CPT/HCPCS: 36415; 80053; 85025

== ENCOUNTER 2023-11-22 13:00 | Outpatient (RCR) | payer MEDICARE, BC, SELFPAY ==
--- NOTE | 2023-10-11 13:54 | HP.PTEVAL ---
Patient's Visit Information Visit Information Visit Information: SHANTHI GOMEZ is a 73 year old M referred to Physical Therapy by Dr. Wilfrid Verduzco MD with a diagnosis of R knee manip. Date of Evaluation: 10/11/23 Physical Therapist: Ravi Banda, DPT, OCS, CSCS Visit Plan Duration: 4-6 Weeks Plan: 2x/week for 3-6 weeks 1. MH, rollout and stretch to R quad, PROM/patellar mobs R knee flexion. 2. teach gym based strength program for LE and core and progress to I. IE HEPInstruct HEP of quad stretch prone 30 x 5 and SKC for knee flexion ROM 15 both at leasst 2x/day with pics Subjective Subjective: R knee was replaced and had a ot of swelling and hard to do PT. That was March. Went back to [facility] who got swelling down adn leg was stiff as a board. had manipulation then End April R knee. Went through PT and was doing real well and leg was moving good and he was pleased. For some reason over the last 4-6 weeks, the knee feels stiff and sore again. Reminds him of post surgery. Anterior knee pain. Saw the surgeon and took x rays and they were good. No explanation for pain or stiffness. Used voltarin adn OTC pain meds and it was not improved. Asked for more therapy and order sent to PT. Exercises have been staying active adn doing some stretches: machines seem to help when he was doing them. has done some WB knee bends. Feels tight still across front. Specific stretches include HS stretches. Is very active adn is outdoors alot, up and down on ladders and can still do those but it hurts. Gets anterior R knee pain can keep him up at night and stiff int he am. Pain R knee.: Pain Intensity (Out of 10): 4 Pain Intensity Range: 0 and 9 Objective Objective: Walking without antalgia today, trasnfers easily, good knee flexion in gait. steps recirpcally up without rail, descending painful r at end of stance in front of knee. AROM R knee 0-110 limited by pain, PROM to 115. L knee 0-122 hip and ankle aROM WFL. max tightness in quads at 90 flexion in prone on R and 100 on L. HS mild tight at -20 90/90 B. strength is 4 on R quad and HS adn 4+ L, hips are 4- abd and ext adn 4+ at ankles. Patella moves well on R and L but some stiffness feeling. Balance/Special Test Scores Lower Extremity Functional Score: 46 Goals Goal 1:: Sleep without waking due to pain Goal Time Frame: 4-6 Weeks Goal 2:: 0-120 AROM without pain Goal Time Frame: 4-6 Weeks Goal 3:: Patient descend steps with one rail without pain Goal Time Frame: 4-6 Weeks Goal 4:: 75% better in overall pain and stiffness R knee Goal Time Frame: 4-6 Weeks Goal 5:: LEFS 50 Goal Time Frame: 4-6 Weeks Rehabilitation Potential Physical Therapy Diagnosis: R knee stiffness and tightness making funciton uncomfortable Rehabilitation Potential: Fair Anticipated Interventions Patient/Client Instruction: Educate patient on: Condition and Plan of Care For the Purpose of:: To decrease pain, To increase ROM, To improve nutrient delivery to tissue and To increase tolerance to activity/condition/position Therapeutic Exercise to Include: Strength training, Postural training, Passive ROM and Active ROM For the Purpose of:: To decrease pain, To increase ROM, To improve nutrient delivery to tissue and To increase tolerance to activity/condition/position Manual Therapy Techniques to Include: Mobilization, Passive ROM and Soft tissue mobilization For the Purpose of:: To decrease pain, To increase ROM, To improve nutrient delivery to tissue and To increase tolerance to activity/condition/position Thermo therapy (hot pack): Yes For the Purpose of:: To decrease pain and To increase ROM Text: Thank you for the opportunity to evaluate your patient. For Medicare and Medicare HMO plans, please review the plan of care and approve it. It will need to be FAXED BACK to us at [phone] for Medicare purposes. For Medicare only, by signing this I certify the plan of care. Please let me know if there are questions or concerns regarding this plan of care. Physician Signature: Date:
--- NOTE | 2023-11-22 13:21 | HP.PTDCSUM ---
Discharge Summary D/C summary: It has been my pleasure to treat SHANTHI GOMEZ referred by Dr. Wilfrid Verduzco MD, with the diagnosis of R knee manip for a total of 7 visit(s). Discharge Date: 11/22/23 Please see the following information for a summary of their discharge status. Subjective Subjective: Morning is more stiff. Workout is going well. Uses pillow under knee at night which seems to help. Pain R knee.: Pain Intensity (Out of 10): 0 Overall Improvement % Improvement: 60 Objective Objective/Function: 0-111 AROM and 115 PROM today. painful at end range with stretch, funcitonal ROM is comfortable. steps reciprocal but still painfu end range flexion R especially descending. Walking look snormal today but still c/o pain stiffness in am. Goals Goal 1:: Sleep without waking due to pain Goal Progress: Not Progressing Goal 2:: 0-120 AROM without pain Goal Progress: 115 is limit due pain Goal 3:: Patient descend steps with one rail without pain Goal Progress: Goal Met Goal 4:: 75% better in overall pain and stiffness R knee Goal Progress: 60% Goal 5:: LEFS 50 Goal Progress: Not Progressing Plan Plan: d/c to [facility] dn home HEP, pt to doctor for injections soon. D/C Information d/c sentence: If there are questions or concerns regarding this patient's physical therapy, please feel free to call me at [phone]. Thank you for the referral of this patient. Sincerely, Ravi Banda, DPT, OCS, CSCS Balance/Gait/Functional tests Balance/Special Test Scores Lower Extremity Functional Score: 39 Improvement % Improvement: 60
== END 2023-11-22 19:00 | disposition home or self-care (01) ==
LOC: PT 13:00
PROVIDERS: PCP Nurse Practitioner Family; Referring Provider Orthopaedic Surgery; Visit Provider Orthopaedic Surgery
DX: M24.661 Ankylosis, right knee (principal)
CPT/HCPCS: 97110; 97161; 97164; 97530

== ENCOUNTER → 2024-01-03 | Outpatient (CLI) | payer MEDICARE, BC, SELFPAY ==
[2024-01-03 10:48] LABS: AST(SGOT) 30 U/L (15-37); Alanine Aminotransfer ALT/SGPT 55 U/L (16-61); Albumin, Serum 3.7 g/dL (3.2-5.0); Alkaline Phosphatase 100 U/L (45-117); Bilirubin, Direct 0.12 mg/dL (0.00-0.30); Cholesterol 168 mg/dL (200); Globulin 3.1 g/dL (2.2-4.2); High Density Lipoprotein 36 mg/dL; Protein, Total 6.8 g/dL (6.4-8.2); Triglycerides 72 mg/dL; Very Low Density Lipoprotein 14 mg/dL (5-40)
== END | disposition home or self-care (01) ==
LOC: MTLAB 07:44
PROVIDERS: PCP Nurse Practitioner Family; Referring Provider Nurse Practitioner Gerontology; Visit Provider Nurse Practitioner Gerontology
DX: E78.00 Pure hypercholesterolemia, unspecified (principal)
CPT/HCPCS: 36415; 80061; 80076

== ENCOUNTER → 2024-01-25 | Outpatient (CLI) | payer MEDICARE, BC, SELFPAY ==
[2024-01-25 12:13] LABS: Absolute Lymphocyte Count 0.73 X10^3/uL (0.83-4.51); Basophil# 0.01 X10^3/uL; Basophil% 0.1 % (0-1); Hematocrit 41.2 % (40-54); Hemoglobin 13.7 g/dL (13.0-16.5); Lymphocyte # 0.73 X10^3/ul (0.83-4.51); Lymphocyte % 10.4 % (19-41); Mean Corp Hgb Conc 33.3 g/dL (32-36); Mean Corpuscular Hgb 29.9 pg (27.0-32.0); Mean Platelet Vol. 10.3 fl (6.2-12.0); Monocyte# 0.25 X10^3/uL; Monocyte% 3.6 % (0-10); NRBC Flagged by Analyzer 0 % (0-5); Neutrophil # 6.02 X10^3/uL (2.7-7.7); Neutrophil % 85.6 % (47-70); Platelet Count 243 K/mm3 (150-450); RBC Distribution Width CV 14.2 % (11.6-14.6); RBC Distribution Width SD 46.2 fl (35.1-43.9); Red Blood Count 4.58 M/mm3 (4.6-6.2)
[2024-01-25 12:41] LABS: ALB/GLOB Ratio 1.1 RATIO (0.9-2.4); AST(SGOT) 33 U/L (15-37); Alanine Aminotransfer ALT/SGPT 65 U/L (16-61); Alkaline Phosphatase 103 U/L (45-117); Anion Gap 8 (5-15); BUN 19 mg/dL (7-18); BUN/Creat Ratio 17.3 RATIO (10-20); Calcium,Total 10.1 mg/dL (8.5-10.1); Chloride 107 mmol/L (98-107); EST Glomerular Filtration Rate 69 mL/min (>60); Est Glom Filt Rate - Afr Amer 84 mL/min (>60); Globulin 3.6 g/dL (2.2-4.2); Glucose 146 mg/dL (74-106); Potassium 4.1 mmol/L (3.5-5.1); Protein, Total 7.6 g/dL (6.4-8.2); Sodium Level 139 mmol/L (136-145)
== END | disposition home or self-care (01) ==
LOC: MTLAB 09:00
PROVIDERS: PCP Nurse Practitioner Family; Referring Provider Internal Medicine Rheumatology; Visit Provider Internal Medicine Rheumatology
DX: M06.4 Inflammatory polyarthropathy (principal); Z79.899 Other long term (current) drug therapy; M17.0 Bilateral primary osteoarthritis of knee; M16.0 Bilateral primary osteoarthritis of hip
CPT/HCPCS: 36415; 80053; 85025

== ENCOUNTER → 2024-02-24 | Outpatient (CLI) | payer MEDICARE, BC, SELFPAY ==
--- NOTE | 2024-02-24 10:25 | US_ITS ---
EXAM: US ABDOMEN LIMITED, RIGHT UPPER QUADRANT CLINICAL INDICATION: ELEVATED LIVER ENZYMES TECHNIQUE: Real-time ultrasound of the right upper quadrant with image documentation. COMPARISON: Enhanced CT January 01, 2020, there was right renal cyst, mild low-attenuation fatty liver, and 2 tiny subcentimeter hepatic cysts. FINDINGS: LIVER: Mildly enlarged at 18.5 cm in length. Mildly echogenic fatty-appearing liver. No focal hepatic lesion. Minimal hypoechoic parenchyma adjacent to the gallbladder is presumably focal fatty sparing. Patent hepatic veins, main portal vein and proximal branches insofar as they are seen. No intrahepatic biliary ductal dilation. GALLBLADDER: Unremarkable with the exception of slight hypoechoic sludge in the proximal gallbladder.. No shadowing gallstone. No gallbladder wall thickening is demonstrated. No pericholecystic fluid. Negative sonographic Suresh''s sign. COMMON BILE DUCT: Unremarkable as visualized. 4.1 mm at the yue. The proximal common bile duct is within normal limits for the patient''s age. PANCREAS: Mildly echogenic head and body, most of the pancreas is demonstrated. Patent portal vein confluence and splenic vessels deep to the pancreas. No focal abnormality is demonstrated in the pancreas. No pancreatic ductal dilatation. RIGHT KIDNEY: 12.3 cm x 5.6 cm x 5.3 cm. There is no hydronephrosis. No shadowing calculus. Exophytic 1.5 cm x 1.9 cm x 1.4 cm cyst. US/Abdomen Limited IMPRESSION: No specific acute right upper quadrant findings. Borderline hepatomegaly. Fatty liver. Mildly echogenic pancreas. Normal gallbladder and ducts. Electronically Signed: Liliana White MD at 2:21 EST ,
== END | disposition home or self-care (01) ==
LOC: US 10:21
PROVIDERS: PCP Nurse Practitioner Family; Referring Provider Internal Medicine Rheumatology; Visit Provider Internal Medicine Rheumatology
DX: R74.8 Abnormal levels of other serum enzymes (principal); Z79.899 Other long term (current) drug therapy
CPT/HCPCS: 76705

== ENCOUNTER → 2024-05-19 | Outpatient (CLI) | payer MEDICARE, BC, SELFPAY ==
[2024-05-19 17:26] LABS: Absolute Lymphocyte Count 2.18 X10^3/uL (0.83-4.51); Absolute Neutrophil Count 3.2 X10^3/uL (2.0-7.7); Basophil# 0.07 X10^3/uL; Basophil% 1.1 % (0-1); Eosinophil# 0.07 X10^3/uL; Eosinophils% 1.1 % (0-5); Hematocrit 40.5 % (40-54); Hemoglobin 13.5 g/dL (13.0-16.5); Lymphocyte # 2.18 X10^3/ul (0.83-4.51); Mean Corp Hgb Conc 33.3 g/dL (32-36); Mean Corpuscular Hgb 30.5 pg (27.0-32.0); Mean Corpuscular Volume 91.4 fL (80-94); Mean Platelet Vol. 10.5 fl (6.2-12.0); Monocyte# 0.65 X10^3/uL; Monocyte% 10.4 % (0-10); NRBC Flagged by Analyzer 0 % (0-5); Neutrophil # 3.23 X10^3/uL (2.7-7.7); Neutrophil % 51.9 % (47-70); Platelet Count 247 K/mm3 (150-450); RBC Distribution Width CV 14.7 % (11.6-14.6); RBC Distribution Width SD 48.5 fl (35.1-43.9); Red Blood Count 4.43 M/mm3 (4.6-6.2); White Blood Count 6.2 K/mm3 (4.4-11.0)
[2024-05-19 19:04] LABS: ALB/GLOB Ratio 1.6 RATIO (0.9-2.4); AST(SGOT) 39 U/L (<=37); Alanine Aminotransfer ALT/SGPT 63 U/L (<=46); Albumin, Serum 4.4 g/dL (3.4-4.8); Alkaline Phosphatase 92 U/L (40-129); Anion Gap 15 (5-15); BUN 12 mg/dL (4-19); BUN/Creat Ratio 10.7 RATIO (10-20); Calcium,Total 10.2 mg/dL (7.6-11.0); Carbon Dioxide 20.3 mmol/L (21.0-32.0); Chloride 105 mmol/L (98-108); Creatinine, Serum 1.12 mg/dL (0.70-1.20); EST Glomerular Filtration Rate 69 (>60); Globulin 2.7 g/dL (2.2-4.2); Glucose 85 mg/dL (70-99); Potassium 4.1 mmol/L (3.3-5.1); Sodium Level 140 mmol/L (133-145); Total Bilirubin 0.29 mg/dL (0.00-1.30)
== END | disposition home or self-care (01) ==
LOC: MTLAB 14:21
PROVIDERS: PCP Nurse Practitioner Family; Referring Provider Internal Medicine Rheumatology; Visit Provider Internal Medicine Rheumatology
DX: M06.4 Inflammatory polyarthropathy (principal); Z79.899 Other long term (current) drug therapy
CPT/HCPCS: 36415; 80053; 85025

== ENCOUNTER → 2024-07-04 | Outpatient (CLI) | payer MEDICARE, BC, SELFPAY ==
[2024-07-04 10:38] LABS: ALB/GLOB Ratio 1.7 RATIO (0.9-2.4); AST(SGOT) 30 U/L (<=37); Alanine Aminotransfer ALT/SGPT 42 U/L (<=46); Albumin, Serum 4.2 g/dL (3.4-4.8); Alkaline Phosphatase 89 U/L (40-129); Anion Gap 10 (5-15); BUN 17 mg/dL (4-19); BUN/Creat Ratio 16.6 RATIO (10-20); Calcium,Total 9.7 mg/dL (7.6-11.0); Carbon Dioxide 21.3 mmol/L (21.0-32.0); Chloride 110 mmol/L (98-108); Cholesterol 126 mg/dL (<=200); Creatinine, Serum 1.05 mg/dL (0.70-1.20); EST Glomerular Filtration Rate 74 (>60); Globulin 2.5 g/dL (2.2-4.2); Glucose 100 mg/dL (70-99); High Density Lipoprotein 35 mg/dL; Low Density Lipoprotein Calc. 74 mg/dL; Protein, Total 6.7 g/dL (5.9-8.4); Sodium Level 141 mmol/L (133-145); Total Bilirubin 0.42 mg/dL (0.00-1.30); Triglycerides 83 mg/dL; Very Low Density Lipoprotein 17 mg/dL (5-40); cholesterol:hdl ratio screen 3.59
== END | disposition home or self-care (01) ==
LOC: MTLAB 07:27
PROVIDERS: Nurse Practitioner Gerontology; PCP Nurse Practitioner Family; Referring Provider Internal Medicine Rheumatology; Visit Provider Internal Medicine Rheumatology
DX: M06.4 Inflammatory polyarthropathy (principal); Z79.899 Other long term (current) drug therapy; M17.0 Bilateral primary osteoarthritis of knee; M16.0 Bilateral primary osteoarthritis of hip
CPT/HCPCS: 36415; 80053; 80061; 82248

== ENCOUNTER → 2024-07-11 | Outpatient (CLI) | payer MEDICARE, BC, SELFPAY ==
[2024-07-11 12:20] LABS: Color, Urine Yellow (Yellow); Glucose, Dipstick Normal (Normal); Ketone-Dipstick Negative (Negative); Leukocyte Esterase-Dipstick Negative /ul (Negative); Nitrite-Dipstick Negative (Negative); Occult Blood-Urine Negative /ul (Negative); Protein-Dipstick 15 mg/dl (Negative); Urine Bilirubin Dipstick Negative (Negative); Urine Clarity Clear (Clear); Urine Urobilinogen Normal (Normal); Urine pH 6.5 (5.0 - 8.0)
[2024-07-11 12:44] LABS: Microalbumin,Random Urine < 12.0 mg/L (NO RANGE EST.); Microalbumin:Creatinine Ratio UNABLE TO CALCULATE mg/g CRE
[2024-07-11 13:08] LABS: Cholesterol 126 mg/dL (<=200); High Density Lipoprotein 38 mg/dL; Low Density Lipoprotein Calc. 71 mg/dL; PSA,Total - Annual Screen 1.49 ng/mL (0.02-4.00); Thyroid Stim Hormone (TSH) 0.809 uIU/mL (0.300-4.200); Triglycerides 87 mg/dL; Very Low Density Lipoprotein 17 mg/dL (5-40); cholesterol:hdl ratio screen 3.32
== END | disposition home or self-care (01) ==
LOC: MTLAB 10:16
PROVIDERS: PCP Nurse Practitioner Family; Referring Provider Nurse Practitioner Family; Visit Provider Nurse Practitioner Family
DX: E78.00 Pure hypercholesterolemia, unspecified (principal); I48.0 Paroxysmal atrial fibrillation; I42.9 Cardiomyopathy, unspecified; Z12.5 Encounter for screening for malignant neoplasm of prostate
CPT/HCPCS: 36415; 80061; 81002; 82043; 82570; 84153; 84443; G0103

== ENCOUNTER → 2024-08-21 | Outpatient (CLI) | payer MEDICARE, BC, SELFPAY ==
[2024-08-21 12:41] LABS: Absolute Lymphocyte Count 1.58 X10^3/uL (0.83-4.51); Absolute Neutrophil Count 2.6 X10^3/uL (2.0-7.7); Basophil# 0.06 X10^3/uL; Basophil% 1.2 % (0-1); Eosinophil# 0.16 X10^3/uL; Eosinophils% 3.2 % (0-5); Hematocrit 41.6 % (40-54); Hemoglobin 13.8 g/dL (13.0-16.5); Lymphocyte # 1.58 X10^3/ul (0.83-4.51); Lymphocyte % 31.9 % (19-41); Mean Corp Hgb Conc 33.2 g/dL (32-36); Mean Corpuscular Hgb 30.5 pg (27.0-32.0); Mean Platelet Vol. 11.1 fl (6.2-12.0); Monocyte# 0.57 X10^3/uL; Monocyte% 11.5 % (0-10); NRBC Flagged by Analyzer 0 % (0-5); Neutrophil # 2.57 X10^3/uL (2.7-7.7); Platelet Count 198 K/mm3 (150-450); RBC Distribution Width CV 13.5 % (11.6-14.6); RBC Distribution Width SD 45.2 fl (35.1-43.9); Red Blood Count 4.52 M/mm3 (4.6-6.2)
[2024-08-21 13:07] LABS: ALB/GLOB Ratio 1.7 RATIO (0.9-2.4); AST(SGOT) 46 U/L (<=37); Alanine Aminotransfer ALT/SGPT 67 U/L (<=46); Albumin, Serum 4.5 g/dL (3.4-4.8); Alkaline Phosphatase 91 U/L (40-129); Anion Gap 12 (5-15); BUN 14 mg/dL (4-19); BUN/Creat Ratio 13.6 RATIO (10-20); Carbon Dioxide 21.7 mmol/L (21.0-32.0); Chloride 105 mmol/L (98-108); Creatinine, Serum 1.05 mg/dL (0.70-1.20); EST Glomerular Filtration Rate 74 (>60); Globulin 2.7 g/dL (2.2-4.2); Glucose 110 mg/dL (70-99); Protein, Total 7.1 g/dL (5.9-8.4); Sodium Level 139 mmol/L (133-145); Total Bilirubin 0.53 mg/dL (0.00-1.30)
== END | disposition home or self-care (01) ==
LOC: MTLAB 10:23
PROVIDERS: PCP Nurse Practitioner Family; Referring Provider Internal Medicine Rheumatology; Visit Provider Internal Medicine Rheumatology
DX: M06.4 Inflammatory polyarthropathy (principal); Z79.899 Other long term (current) drug therapy; M17.0 Bilateral primary osteoarthritis of knee; M16.0 Bilateral primary osteoarthritis of hip
CPT/HCPCS: 36415; 80053; 85025

== ENCOUNTER → 2024-08-31 | Outpatient (CLI) | payer MEDICARE, BC, SELFPAY ==
--- NOTE | 2024-08-31 16:03 | ECHOD_ITS ---
Reason For Study Reason For Study: ANIL Procedure This was a 2D Doppler, Color Flow transthoracic echocardiogram. Left Ventricle Normal LV size. The left ventricular ejection fraction is 65 %. Stage 1 diastolic dysfunction. No regional wall motion abnormalities noted. Right Ventricle Normal RV size. Normal systolic function. TAPSE is 1.8. Atria Normal left atrium. Normal right atrium. Mitral Valve Bileaflet diffuse mitral valve thickening. Tricuspid Valve Normal tricuspid valve. Mild tricuspid valve insufficiency. Pulmonary artery systolic pressure is 30 mmHg. Aortic Valve Trisinus/trileaflet aortic valve. Pulmonic Valve Normal pulmonic valve. Great Vessels Normal aortic root. The pulmonary artery is normal size. Inferior vena cava collapse with respiration. Pericardium/Pleural No pericardial effusion. MMode/2D Measurements & Calculations LVIDd: 4.4 cm IVSd: 1.0 cm Ao root diam: 3.8 cm LVIDs: 3.3 cm LVPWd: 1.2 cm RVDd: 2.7 cm FS: 25.3 % LAV(MOD-bp): 52.6 ml LVAd ap4: 28.5 cm2 LVAd ap2: 22.3 cm2 LAV(MOD-bp) Indexed: 25.2 ml/m2 LVLd ap4: 7.9 cm LVLd ap2: 7.9 cm LAV(MOD-sp2): 53.8 ml EDV(MOD-sp4): 84.3 ml EDV(MOD-sp2): 55.5 ml LAV(MOD-sp4): 43.4 ml EDV(sp4-el): 87.2 ml EDV(sp2-el): 53.7 ml LVAs ap4: 15.1 cm2 LVAs ap2: 11.0 cm2 LVLs ap4: 6.3 cm LVLs ap2: 6.4 cm ESV(MOD-sp4): 31.2 ml ESV(MOD-sp2): 17.8 ml ESV(sp4-el): 30.8 ml ESV(sp2-el): 16.2 ml EF(MOD-sp4): 63.0 % EF(MOD-sp2): 67.9 % EF(sp4-el): 64.7 % SV(MOD-sp4): 53.1 ml SV(MOD-sp2): 37.7 ml SV(sp4-el): 56.5 ml SI(MOD-sp4): 25.5 ml/m2 SI(MOD-sp2): 18.1 ml/m2 Ao sinus diam: 3.[address] Junction: 3.3 cm LA A4 area: 15.6 cm2 LA dimension(2D): 3.6 cm TAPSE: 2.7 cm RA A4 area: 13.8 cm2 Time Measurements MV dec time: 0.17 sec Doppler Measurements & Calculations MV E max sourav: 66.5 cm/sec Lat Peak E' Sourav: 11.9 cm/sec Med Peak E' Sourav: 9.5 cm/sec MV A max sourav: 110.1 cm/sec E/E' lat: 5.6 E/E' med: 7.0 MV E/A: 0.60 MV V2 max: 122.9 cm/sec MV P1/2t max sourav: 78.2 cm/sec Ao V2 max: 188.2 cm/sec MV max P.0 mmHg MV P1/2t: 78.6 msec Ao max P.2 mmHg MV V2 mean: 61.8 cm/sec MV dec slope: 291.2 cm/sec2 Ao V2 mean: 120.3 cm/sec MV mean P.8 mmHg Ao mean P.8 mmHg MV V2 VTI: 32.3 cm MVA(P1/2t): 2.8 cm2 Ao V2 VTI: 35.5 cm AV (velocity ratio): 0.81 LV V1 max: 128.1 cm/sec PA V2 max: 127.9 cm/sec TR max sourav: 260.2 cm/sec LV V1 max P.6 mmHg PA V2 mean: 85.7 cm/sec TR max P.1 mmHg LV V1 mean P.9 mmHg LV V1 mean: 76.5 cm/sec LV V1 VTI: 28.7 cm ECHO/Echo Complete Interpretation Summary Normal LV size. The left ventricular ejection fraction is 65 %. Stage 1 diastolic dysfunction. Bileaflet diffuse mitral valve thickening. Pulmonary artery systolic pressure is 30 mmHg. TAPSE is 1.8. Ordering Physician: Odell Cook V Referring Physician: Dolores Banda Performed By: Megan Zimmer RVT, RDCS and Student
== END | disposition home or self-care (01) ==
LOC: CVS 16:00
PROVIDERS: PCP Nurse Practitioner Family; Referring Provider Internal Medicine Pulmonary Disease; Visit Provider Internal Medicine Pulmonary Disease
DX: G47.33 Obstructive sleep apnea (adult) (pediatric) (principal); G47.37 Central sleep apnea in conditions classified elsewhere
CPT/HCPCS: 93306

== ENCOUNTER → 2024-10-03 | Outpatient (CLI) | payer MEDICARE, BC, SELFPAY ==
[2024-10-03 16:02] LABS: AST(SGOT) 40 U/L (<=37); Alanine Aminotransfer ALT/SGPT 49 U/L (<=46); Albumin, Serum 4.3 g/dL (3.4-4.8); Alkaline Phosphatase 89 U/L (40-129); Anion Gap 12 (5-15); BUN 15 mg/dL (4-19); BUN/Creat Ratio 15.6 RATIO (10-20); Calcium,Total 10.0 mg/dL (7.6-11.0); Carbon Dioxide 21.1 mmol/L (21.0-32.0); Chloride 107 mmol/L (98-108); Globulin 2.6 g/dL (2.2-4.2); Glucose 116 mg/dL (70-99); Potassium 4.1 mmol/L (3.3-5.1)
[2024-10-03 16:03] LABS: Hematocrit 42.4 % (40-54); Hemoglobin 14.4 g/dL (13.0-16.5); Immature Granulocytes Count 0.010 X10^3/uL (0.0-0.0); Mean Corp Hgb Conc 34.0 g/dL (32-36); Mean Corpuscular Volume 87.8 fL (80-94); Mean Platelet Vol. 11.2 fl (6.2-12.0); NRBC Flagged by Analyzer 0 % (0-5); Platelet Count 191 K/mm3 (150-450); RBC Distribution Width CV 13.3 % (11.6-14.6); RBC Distribution Width SD 43.2 fl (35.1-43.9); Red Blood Count 4.83 M/mm3 (4.6-6.2); White Blood Count 4.5 K/mm3 (4.4-11.0)
== END | disposition home or self-care (01) ==
LOC: MTLAB 11:47
PROVIDERS: PCP Nurse Practitioner Family; Referring Provider Internal Medicine Rheumatology; Visit Provider Internal Medicine Rheumatology
DX: M06.4 Inflammatory polyarthropathy (principal); Z79.899 Other long term (current) drug therapy; K76.0 Fatty (change of) liver, not elsewhere classified
CPT/HCPCS: 36415; 80053; 85025

== ENCOUNTER → 2025-01-05 | Outpatient (CLI) | payer MEDICARE, BC, SELFPAY ==
[2025-01-05 12:40] LABS: Hematocrit 41.9 % (40-54); Hemoglobin 14.0 g/dL (13.0-16.5); Immature Granulocytes Count 0.000 X10^3/uL (0.0-0.0); Mean Corp Hgb Conc 33.4 g/dL (32-36); Mean Corpuscular Volume 89.1 fL (80-94); Mean Platelet Vol. 10.8 fl (6.2-12.0); NRBC Flagged by Analyzer 0 % (0-5); Platelet Count 203 K/mm3 (150-450); RBC Distribution Width CV 13.4 % (11.6-14.6); RBC Distribution Width SD 44.0 fl (35.1-43.9); Red Blood Count 4.70 M/mm3 (4.6-6.2); White Blood Count 4.2 K/mm3 (4.4-11.0)
[2025-01-05 12:47] LABS: AST(SGOT) 34 U/L (<=37); Alanine Aminotransfer ALT/SGPT 56 U/L (<=46); Albumin, Serum 4.3 g/dL (3.4-4.8); Alkaline Phosphatase 82 U/L (40-129); Anion Gap 9 (5-15); BUN 12 mg/dL (4-19); BUN/Creat Ratio 12.3 RATIO (10-20); Calcium,Total 10.1 mg/dL (7.6-11.0); Carbon Dioxide 24.9 mmol/L (21.0-32.0); Chloride 108 mmol/L (98-108); Globulin 2.5 g/dL (2.2-4.2); Glucose 104 mg/dL (70-99); Potassium 4.7 mmol/L (3.3-5.1)
== END | disposition home or self-care (01) ==
LOC: MTLAB 10:15
PROVIDERS: PCP Nurse Practitioner Family; Referring Provider Internal Medicine Rheumatology; Visit Provider Internal Medicine Rheumatology
DX: M06.4 Inflammatory polyarthropathy (principal); M17.0 Bilateral primary osteoarthritis of knee; M16.0 Bilateral primary osteoarthritis of hip; Z79.899 Other long term (current) drug therapy
CPT/HCPCS: 36415; 80053; 85025